=== PATIENT | female | born 1995 | race Caucasian/White ===

== ENCOUNTER 2021-08-22 01:32 | Inpatient (IN) | payer BC ==
--- NOTE | 2021-08-22 02:20 | EDPHYS ---
Physician Documentation [facility] Name: Diandra Vo Age: 26 yrs Sex: Female : 1995 Arrival Date: 08/22/2021 Time: 01:36 Bed 13 Private MD: ED Physician Ortega Crow HPI: 08/22 02:38 This 26 yrs old Female presents to ER via Ambulatory with complaints of Arm jr8 Pain, Abscess. 02:38 Onset: The symptoms/episode began/occurred gradually, 4 day(s) ago. Associated signs jr8 and symptoms: The patient has no apparent associated signs or symptoms. Severity of symptoms: At their worst the symptoms were moderate, in the emergency department the symptoms are unchanged. The patient has not experienced similar symptoms in the past. The patient has not recently seen a physician. Patient stated that she utilizes heroin on occasion. Had injected into the ventral aspect of her left forearm a few days ago. Since then has had abscess formation to the injection site along with increased erythema around the area. Patient stated that it is now becoming very painful is having a hard time moving her wrist and hand.. 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 - Social history:: Smoking status: Patient reports the use of cigarette tobacco products, smokes one pack cigarettes per day. Patient uses street drugs, heroin, IV drugs, heroin. ROS: 02:38 Constitutional: Negative for fever, chills, and weight loss, Eyes: Negative for injury, jr8 pain, redness, and discharge, ENT: Negative for injury, pain, and discharge, Neck: Negative for injury, pain, and swelling, Cardiovascular: Negative for chest pain, palpitations, and edema, Respiratory: Negative for shortness of breath, cough, wheezing, and pleuritic chest pain, Abdomen/GI: Negative for abdominal pain, nausea, vomiting, diarrhea, and constipation, Back: Negative for injury and pain, Skin: Negative for injury, rash, and discoloration, Neuro: Negative for headache, weakness, numbness, tingling, and seizure. 02:38 MS/extremity: Positive for erythema, pain, swelling, tenderness, warmth, of the Ventral aspect left forearm. Exam: 02:38 Constitutional: This is a well developed, well nourished patient who is awake, alert, jr8 and in no acute distress. Cardiovascular: Regular rate and rhythm with a normal S1 and S2. No gallops, murmurs, or rubs. Normal PMI, no JVD. No pulse deficits. Respiratory: Lungs have equal breath sounds bilaterally, clear to auscultation and percussion. No rales, rhonchi or wheezes noted. No increased work of breathing, no retractions or nasal flaring. Skin: Warm, dry with normal turgor. Normal color with no rashes, no lesions, and no evidence of cellulitis. Neuro: Awake and alert, GCS 15, oriented to person, place, time, and situation. Cranial nerves II-XII grossly intact. Motor strength 5/5 in all extremities. Sensory grossly intact. 02:38 Musculoskeletal/extremity: Extremities: grossly normal except: noted in the Left forearm: Patient has approximately a 3 cm abscess to the ventral left forearm. Surrounding cellulitis and induration noted. Patient has moderate amount of pain with passive and active range of motion to her wrist and fingers when flexing and extending with and without resistance. , Pulses: noted to be 2+ in the right radial artery and left radial artery, Perfusion: the patient is pink, warm, noted to have brisk capillary refill, Perfusion: the extremity is pink, warm, with brisk capillary refill, Sensation intact. Vital Signs: 01:51 BP 116 / 70; Pulse 106; Resp 18; Temp 98.0; Pulse Ox 100% on R/A; Weight 70.31 kg; df1 Height 5 ft. 5 in. (165.10 cm); Pain 6/10; 02:51 BP 110 / 60; Pulse 99; Resp 18; Pulse Ox 100% on R/A; Pain 7/10; ms4 04:19 BP 112 / 71; Pulse 95; Resp 18; Pulse Ox 98% on R/A; Pain 3/10; ms4 01:51 Body Mass Index 25.79 (70.31 kg, 165.10 cm) df1 MDM: 01:58 Patient medically screened. pkl 02:38 Data reviewed: vital signs, nurses notes, lab test result(s). Data interpreted: Pulse jr8 oximetry: on room air is 100 %. Interpretation: normal. Counseling: I had a detailed discussion with the patient and/or guardian regarding: the historical points, exam findings, and any diagnostic results supporting the discharge/admit diagnosis, lab results, the need for further work-up and treatment in the hospital. ED course: Dr. Cuellar consulted on the case and will see patient in the morning for surgery.. 08/22 02:15 Order name: CBC with Diff jr8 08/22 02:15 Order name: Basic Metabolic Panel 8 08/22 02:15 Order name: LFT's 8 08/22 02:15 Order name: Protime (+inr) 8 08/22 02:15 Order name: Ptt, Activated jr8 08/22 02:15 Order name: Blood Culture Adult (2) [facility] 08/22 02:15 Order name: Procalcitonin; Complete Time: 04:23 [facility] 08/22 02:16 Order name: CBC with Automated Diff; Complete Time: 02:50 EDMS 08/22 02:16 Order name: Basic Metabolic Panel; Complete Time: 04:23 EDMS 08/22 02:16 Order name: Liver (Hepatic) Function; Complete Time: 04:23 EDMS 08/22 02:16 Order name: Protime (+INR); Complete Time: 04:23 EDMS 08/22 02:16 Order name: PTT, Activated Partial Thromb; Complete Time: 04:23 EDMS 08/22 02:23 Order name: COVID-19 : Document "Date of Symptom Onset" if Symptomatic. bb 08/22 02:23 Order name: CORONAVIRUS EDMS 08/22 02:15 Order name: IV; Complete Time: 02:40 jr8 08/22 02:35 Order name: CONS Physician Consult EDAL 08/22 03:50 Order name: SARS-COV-2 RT PCR; Complete Time: 04:23 EDMS Administered Medications: 02:49 Drug: D5-1/2 NS 1000 ml Route: IV; Rate: 125 ml/hr; Site: right antecubital; ms4 02:49 Drug: Cefepime 1 grams Route: IVPB; Rate: 200 ml/hr; Infused Over: 30 mins; Site: right ms4 antecubital; 02:49 Drug: morphine 2 mg Route: IVP; Site: right antecubital; ms4 03:00 Drug: vancoMYCIN 1 grams Route: IVPB; Infused Over: 2 hrs; Site: right antecubital; ms4 03:00 Drug: Xopenex (levalbuterol) 1.25 mg Route: Inhalation; ms4 03:00 Drug: Ipratropium Aerosol 0.5 mg Route: Inhalation; ms4 Disposition: 04:23 Co-signature as Attending Physician, Ortega Crow MD. pkl Disposition Summary: 08/22/21 02:19 Hospitalization Ordered Hospitalization Status: Inpatient Admission jr8 Location: Telemetry/MedSurg (Inpatient) jr8 Condition: Stable jr8 Problem: new jr8 Symptoms: are unchanged jr8 Bed/Room Type: Standard jr8 Provider: Dorina Saini(08/22/21 02:42) jr8 Room Assignment: [facility](08/22/21 03:55) Diagnosis - Cellulitis of left upper limb jr8 - Cutaneous abscess of left upper limb jr8 - Tenosynovitis jr8 Forms: - Medication Reconciliation Form jr8 - SBAR form jr8 Signatures: Dispatcher [employer] EDMS Jamia Samuel RN RN mw Lam, Pin, MD MD pkl Kristopher Hickman PA PA jr8 Bina Arzola RN RN ms4 Kiarra Pinedo df1 Corrections: (The following items were deleted from the chart) 02:42 02:19 Karan Weeks jr8 jr8 03:55 02:19 jrTuan mw
--- NOTE | 2021-08-22 02:20 | ER ---
Nurse's Notes [facility] Name: Diandra Vo Age: 26 yrs Sex: Female : 1995 Arrival Date: 08/22/2021 Time: 01:36 Bed 13 Private MD: Diagnosis: Cellulitis of left upper limb;Cutaneous abscess of left upper limb;Tenosynovitis Presentation: 08/22 01:51 Chief complaint: Patient states: Abscess to left FA x 3 days. Coronavirus screen: df1 Vaccine status: Patient reports receiving the 1st dose of the Covid vaccine. The client reports previous COVID testing was negative. Date of collection: October 2020. Ebola Screen: Patient negative for fever greater than or equal to 101.5 degrees Fahrenheit, and additional compatible Ebola Virus Disease symptoms Patient denies exposure to infectious person. Patient denies travel to an Ebola-affected area in the 21 days before illness onset. Initial Sepsis Screen: Does the patient meet any 2 criteria? No. Patient's initial sepsis screen is negative. Does the patient have a suspected source of infection? Yes: Other: abscess to left FA. Risk Assessment: Do you want to hurt yourself or someone else? Patient reports no desire to harm self or others. Onset of symptoms was August 18, 2021. 01:51 Method Of Arrival: Ambulatory df1 01:51 Acuity: MARLY 3 df1 01:56 Note Pt states abscess to left FA x 3 days after using IV Herion. Denies N/V/D/fever. df1 Triage Assessment: 02:00 General: Appears comfortable, unkempt, Behavior is calm, cooperative. Pain: Complains df1 of pain in left arm. Neuro: No deficits noted. Cardiovascular: No deficits noted. Respiratory: No deficits noted. GI: No deficits noted. : No deficits noted. Derm: abscess to left FA. Musculoskeletal: No deficits noted. 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 - Social history:: Smoking status: Patient reports the use of cigarette tobacco products, smokes one pack cigarettes per day. Patient uses street drugs, heroin, IV drugs, heroin. Screenin:55 Abuse screen: Denies threats or abuse. Nutritional screening: No deficits noted. df1 Tuberculosis screening: No symptoms or risk factors identified. Fall Risk None identified. Assessment: 02:49 General: Appears in no apparent distress. Behavior is calm, cooperative, appropriate ms4 for age. Pain: Complains of pain in left radial artery and right radial artery and left arm. Neuro: No deficits noted. Cardiovascular: No deficits noted. Respiratory: Breath sounds with wheezes bilaterally. Musculoskeletal: Swelling present in left arm Tenderness present in left arm Reports pain in left arm since 3 days. Injury Description: abscess to left forearm. 02:52 Reassessment: patient reports she last used heroin 3 hours ago. patient reports she ms4 starts to have withdrawal symptoms around 12 hours after using. JESSIE Hernandez notified. 04:05 Reassessment: report given to jannteh bliss. patient to be transported upstairs. ms4 04:20 Reassessment: Patient appears in no apparent distress at this time. No changes from ms4 previously documented assessment. Patient and/or family updated on plan of care and expected duration. Pain level reassessed. Patient is alert, oriented x 3, equal unlabored respirations, skin warm/dry/pink. Vital Signs: 01:51 BP 116 / 70; Pulse 106; Resp 18; Temp 98.0; Pulse Ox 100% on R/A; Weight 70.31 kg; df1 Height 5 ft. 5 in. (165.10 cm); Pain 6/10; 02:51 BP 110 / 60; Pulse 99; Resp 18; Pulse Ox 100% on R/A; Pain 7/10; ms4 04:19 BP 112 / 71; Pulse 95; Resp 18; Pulse Ox 98% on R/A; Pain 3/10; ms4 01:51 Body Mass Index 25.79 (70.31 kg, 165.10 cm) df1 ED Course: 01:36 Patient arrived in ED. bp1 01:53 Triage completed. df1 01:58 Ortega Crow MD is Attending Physician. pkl 02:01 Arm band placed on right wrist. df1 02:02 Patient has correct armband on for positive identification. Placed in gown. Bed in low df1 position. Call light in reach. Side rails up X 1. Adult w/ patient. 02:03 [facility] kc4 02:17 Karan Weeks is Hospitalizing Provider. jr8 02:42 Dorina Saini MD is Hospitalizing Provider. jr8 02:48 Protime (+inr) Sent. ms4 02:48 Ptt, Activated Sent. ms4 02:48 LFT's Sent. ms4 02:48 Basic Metabolic Panel Sent. ms4 02:48 CBC with Diff Sent. ms4 02:49 COVID-19 : Document "Date of Symptom Onset" if Symptomatic. Sent. ms4 02:51 Inserted saline lock: 20 gauge in right antecubital area, using aseptic technique. ms4 Blood collected. 04:20 No provider procedures requiring assistance completed. ms4 Administered Medications: 02:49 Drug: D5-1/2 NS 1000 ml Route: IV; Rate: 125 ml/hr; Site: right antecubital; ms4 02:49 Drug: Cefepime 1 grams Route: IVPB; Rate: 200 ml/hr; Infused Over: 30 mins; Site: right ms4 antecubital; 02:49 Drug: morphine 2 mg Route: IVP; Site: right antecubital; ms4 03:00 Drug: vancoMYCIN 1 grams Route: IVPB; Infused Over: 2 hrs; Site: right antecubital; ms4 03:00 Drug: Xopenex (levalbuterol) 1.25 mg Route: Inhalation; ms4 03:00 Drug: Ipratropium Aerosol 0.5 mg Route: Inhalation; ms4 Outcome: 02:19 Decision to Hospitalize by Provider. jr8 04:21 Patient left the ED. ms4 Signatures: Ortega Crow MD MD pkl Kristopher Hickman PA PA jr8 Melida Hidalgo Mikaela RN RN ms4 Collette Baig kc4 Kiarra Pinedo df1
--- NOTE | 2021-08-22 02:44 | P.HP ---
Certification for Inpatient Patient admitted to: Inpatient With expected LOS: >2 Midnights Patient will require the following post-hospital care: None Practitioner: I am a practitioner with admitting privileges, knowledge of patient current condition, hospital course, and medical plan of care. Services: Services provided to patient in accordance with Admission requirements found in Title 42 Section 412.3 of the Code of Federal Regulations <PalomoDavid Michelle - Last Filed: 08/22/21 03:18> Patient History Date of Service: 08/22/21 Reason for admission: cellulitis of left forearm History of Present Illness: Ms. Vo is a 26 yo F with substance use disorder and asthma who presents with pain, warmth and swelling of the left forearm for the past three days. Denies fever, nausea and vomiting. She last used heroine 3 hours ago. After 12 hours without use, her withdrawal symptoms usually begin. - Past Medical/Surgical History Diabetic: No -: asthma -: substance use disorder - heroine -: tonsillectomy - Family History Family History: Reviewed- Non-Contributory (adopted) - Social History Smoking Status: Current every day smoker Alcohol use: No CD- Drugs: Yes Caffeine use: No Place of Residence: Home <David Culver - Last Filed: 08/22/21 03:18> Date of Service: 08/22/21 <Dorina Saini - Last Filed: 08/25/21 01:23> Review of Systems 10-point ROS is otherwise unremarkable Musculoskeletal: Arm Pain, As per HPI Integumentary: As per HPI <David Culver - Last Filed: 08/22/21 03:18> Physical Examination - Physical Exam General: Alert, In no apparent distress HEENT: Atraumatic, PERRLA, Mucous membr. moist/pink, EOMI, Sclerae nonicteric Neck: Supple, 2+ carotid pulse no bruit, No LAD, Without JVD or thyroid abnormality Respiratory: Normal air movement, Expiratory wheezes Cardiovascular: Regular rate/rhythm, Normal S1 S2 Gastrointestinal: Normal bowel sounds, No tenderness Musculoskeletal: No tenderness Integumentary: Tenderness/swelling, Erythema, Warmth Neurological: Normal speech, Normal strength at 5/5 x4 extr, Normal tone, Normal affect Lymphatics: No axilla or inguinal lymphadenopathy <David Culver - Last Filed: 08/22/21 03:18> Assessment and Plan - Problems (Diagnosis) (1) Heroin use Current Visit: Yes Status: Chronic (2) Cellulitis Current Visit: Yes Status: Acute Qualifiers: Site of cellulitis: extremity Site of cellulitis of extremity: upper extremity Laterality: left Qualified Code(s): L03.114 - Cellulitis of left upper limb (3) Asthma Current Visit: Yes Status: Chronic Qualifiers: Asthma severity: mild Asthma persistence: intermittent Asthma complication type: uncomplicated Qualified Code(s): J45.20 - Mild intermittent asthma, uncomplicated - Plan plastic surgery consulted NPO at midnight continue IVF hydration and IV antibiotics pain medication as needed breathing treatments PRN monitor for s/s of withdrawal DVT ppx Discharge Plan: Home Plan to discharge in: 72 Hours - Advance Directives Does patient have a Living Will: No Does patient have a Durable POA for Healthcare: No - Code Status/Comfort Care Code Status Assessed: Yes (full code ) Critical Care: No Time Spent Managing Pts Care (In Minutes): 70 <David Culver - Last Filed: 08/22/21 03:18> - Problems (Diagnosis) (1) Cellulitis Current Visit: Yes Status: Acute Qualifiers: Site of cellulitis: extremity Site of cellulitis of extremity: upper extremity Laterality: left Qualified Code(s): L03.114 - Cellulitis of left upper limb (2) Heroin use Current Visit: Yes Status: Chronic <Dorina Saini - Last Filed: 08/25/21 01:23> Date of Service: 08/22/21 Subjective agree with the HPI as above. Status post surgery Review of Systems 10-point ROS is otherwise unremarkable Physical Examination - Vital Signs Reviewed - Physical Exam General: Alert, In no apparent distress, Oriented x3 Respiratory: Clear to auscultation bilaterally, Diminished Cardiovascular: Regular rate/rhythm, Normal S1 S2, No murmurs Gastrointestinal: Normal bowel sounds, Soft and benign, Non-distended, No tenderness Musculoskeletal: No clubbing, No tenderness Integumentary: Tenderness/swelling, Erythema Neurological: Sensation intact, Cranial nerves 3-12 intact Assessment & Plan - Problems (Diagnosis) (1) Cellulitis Current Visit: Yes Status: Acute Qualifiers: Site of cellulitis: extremity Site of cellulitis of extremity: upper extremity Laterality: left Qualified Code(s): L03.114 - Cellulitis of left upper limb (2) Heroin use Current Visit: Yes Status: Chronic - Plan Continue plan of care as mentioned below: 1. Continue with IV antibiotic 2. Continue with local wound care 3. Appreciate hand surgeon; closure on Wednesday 4. Gentle IV hydration 5. Monitor CBC 6. Strict blood sugar monitoring 7. Pain control 8. GI and DVT prophylaxis <Dorina Saini - Last Filed: 08/25/21 01:23>
[2021-08-22 02:46] LABS: Absolute Lymphocytes (CBC) 1.6 K/uL (0.7-4.9); Basophils % 0.4 % (0-1.3); Hematocrit 38.6 % (36.0-45.0); MPV 7.9 fL (7.6-11.3); RBC Red Blood Cell Count 4.61 M/uL (3.86-4.86)
[2021-08-22 02:52] LABS: Protime INR 1.2
[2021-08-22] MEDS ORDERED: CEFEPIME 1 GM/VIAL ONE (02:56)
[2021-08-22] MEDS ORDERED: MORPHINE 4 MG/ML SYR ONE (02:57)
[2021-08-22] MEDS ORDERED: D5 0.45 NS 1,000 ML IV ONE (02:57)
[2021-08-22] MEDS ORDERED: NA CHLORIDE 0.9% 100 ML ONE (02:57)
[2021-08-22 03:06] LABS: ALT/SGPT 22 U/L (12-78); AST/SGOT 15 U/L (15-37); Albumin 3.5 g/dL (3.4-5.0); Alkaline Phosphatase 80 U/L (45-117); BUN Blood Urea Nitrogen 6 mg/dL (7-18); Bicarbonate 28 mmol/L (21-32); Bilirubin Direct < 0.1 mg/dL (0-0.2); Bilirubin Total 0.4 mg/dL (0.2-1.0); Glucose Level 108 mg/dL (74-106); Potassium 3.1 mmol/L (3.5-5.1); Protein, Total 7.3 g/dL (6.4-8.2); Sodium Level 138 mmol/L (136-145)
[2021-08-22] MEDS ORDERED: NA CHLORIDE 0.9% 250 ML ONE (03:22)
[2021-08-22] MEDS ORDERED: IPRATROPIUM BROM 0.5MG/2.5ML ONE (03:22)
[2021-08-22] MEDS ORDERED: LEVALBUTEROL 1.25 MG/3 ML NEB ONE (03:22)
[2021-08-22] MEDS ORDERED: VANCOMYCIN 1 GM/VIAL ONE (03:22)
[2021-08-22] MEDS ORDERED: ACETAMINOPHEN 500 MG TAB PO PRN (03:56)
[2021-08-22] MEDS ORDERED: IPRATROPIUM BROM 0.5MG/2.5ML NEB PRN (03:56)
[2021-08-22] MEDS ORDERED: POTASSIUM 25 MEQ EFFERV TAB PO ONE (03:56)
[2021-08-22] MEDS ORDERED: ALBUTEROL 2.5 MG/3 ML NEB SOL NEB PRN (03:56)
[2021-08-22] MEDS ORDERED: ONDANSETRON 4 MG/2 ML VIAL IV PRN (03:56)
[2021-08-22] MEDS ORDERED: VANCOMYCIN 1.25 GM in NA CHLORIDE 0.9% 250 ML IVPB SCH (05:00)
[2021-08-22] MEDS: D5 0.45 NS 1,000 ML IV SCH ×3 (05:02→22:28)
[2021-08-22 05:30] VITALS: BMI 3602.1
[2021-08-22] MEDS: MORPHINE 4 MG/ML SYR IV PRN ×3 (05:33→22:28)
[2021-08-22 09:27] LABS: Urine Appearance CLOUDY (Clear); Urine Bilirubin NEGATIVE (Negative); Urine Blood NEGATIVE (Negative); Urine Color YELLOW (Yellow); Urine Glucose NEGATIVE (Negative); Urine Protein NEGATIVE (Negative)
[2021-08-22 09:32] LABS: Urine Microscopic Reflex ORDER UMIC
--- NOTE | 2021-08-22 09:42 | RAD REPORT ---
EXAM DESCRIPTION: RAD - Forearm Left - 08/22/2021 9:19 am CLINICAL HISTORY: cellulitis COMPARISON: No comparisons FINDINGS: Significant soft tissue swelling is seen along the palmar aspect of the forearm. No underl roopa bony abnormality. No radiopaque foreign body or soft tissue gas.
[2021-08-22 10:19] LABS: Urine Bacteria LOADED /HPF (<20); Urine Mucus 2+ /HPF (NONE SEEN); Urine RBC <5 /HPF (NONE SEEN); Urine Urothelial Cells <5 /HPF (NONE SEEN)
[2021-08-22] MEDS ORDERED: Ringers Lactate 1,000 ML IV ONE (10:56)
[2021-08-22] MEDS ORDERED: CELECOXIB 100 MG CAPSULE ONE (11:58)
[2021-08-22] MEDS ORDERED: ACETAMINOPHEN 500 MG TAB ONE (11:58)
[2021-08-22] MEDS ORDERED: propofoL 200 MG/20 ML VIAL IV ONE ×2 (12:18→13:02)
[2021-08-22] MEDS ORDERED: MIDAZOLAM HCL 2 MG/2 ML INJ ONE (12:18)
[2021-08-22] MEDS ORDERED: FENTANYL CITR 100 MCG/2 ML ONE (12:18)
[2021-08-22] MEDS ORDERED: LIDOCAINE 1% MPF 5 ML VIAL ONE (12:18)
[2021-08-22] MEDS ORDERED: dexAMETHasone 10 MG/ML VIAL ONE (12:54)
[2021-08-22] MEDS ORDERED: ONDANSETRON 4 MG/2 ML VIAL ONE (13:01)
[2021-08-22] MEDS ORDERED: KETOROLAC 30 MG/ML INJ ONE (13:01)
[2021-08-22] MEDS: CEFEPIME 1 GM/100 ML BAG IV SCH (14:30)
[2021-08-22] MEDS ORDERED: Pharmacy Consult 1 EA XX PRN (15:00)
[2021-08-22] MEDS ORDERED: CEFEPIME 1 GM/VIAL IV SCH (15:00)
[2021-08-22] MEDS: VANCOMYCIN 1.25 GM in NA CHLORIDE 0.9% 250 ML IVPB SCH (15:08)
--- NOTE | 2021-08-22 23:41 | OP ---
Surgeon: Matthew Cuellar MD Preop Diagnosis: Abscess of the left forearm, volar. Postop Diagnosis: Abscess of the left forearm, volar. Procedure: Incision and drainage of abscess, debridement of subcutaneous tissue. Anesthesia: General. Description Of Procedure: After satisfactory general anesthesia, the left arm was prepped with Betad ine scrub, Betadine paint, dry sterile drapes placed, the arm elevated, tourniquet inflated to 250 mm Hg. The forearm was placed on a roll lock table. A transverse incision was made over the abscess an d extended proximally and distally in the volar surface about 5 cm in diameter. Pus was obtained. C ultures were taken. The underlying superficial fascia was intact. The wound was jet lavage irrigate d and scrubbed with scrub brush and tenotomy scissors was used to debride necrotic tissue. Tournique t released. Electrocautery was used for hemostasis. Wound packed with half-inch iodoform gauze with a Kerlix. The patient tolerated the procedure well return comfortably. BRYANT/IZABELLA Voice ID: [id number] Report ID: [id number]
[2021-08-23] MEDS: CEFEPIME 1 GM/100 ML BAG IV SCH ×2 (00:58→15:31)
[2021-08-23] MEDS: VANCOMYCIN 1.25 GM in NA CHLORIDE 0.9% 250 ML IVPB SCH ×3 (02:15→22:20)
[2021-08-23] MEDS: MORPHINE 4 MG/ML SYR IV PRN ×2 (05:12→12:30)
[2021-08-23] MEDS: D5 0.45 NS 1,000 ML IV SCH ×2 (08:28→12:33)
[2021-08-23 14:19] LABS: Absolute Lymphocytes (CBC) 2.4 K/uL (0.7-4.9); Basophils % 0.6 % (0-1.3); Hematocrit 33.4 % (36.0-45.0); Lymphocytes % 19.9 % (15.3-44.8); MPV 7.6 fL (7.6-11.3); RBC Red Blood Cell Count 3.97 M/uL (3.86-4.86)
[2021-08-23 15:02] LABS: ALT/SGPT 14 U/L (12-78); AST/SGOT 8 U/L (15-37); Albumin 2.7 g/dL (3.4-5.0); Alkaline Phosphatase 70 U/L (45-117); BUN Blood Urea Nitrogen 7 mg/dL (7-18); Bicarbonate 26 mmol/L (21-32); Bilirubin Total 0.1 mg/dL (0.2-1.0); Glucose Level 122 mg/dL (74-106); Phosphorus 3.4 mg/dL (2.5-4.9); Potassium 3.9 mmol/L (3.5-5.1); Protein, Total 6.5 g/dL (6.4-8.2); Sodium Level 144 mmol/L (136-145)
[2021-08-23] MEDS: CODEINE 30MG/APAP 300MG TAB PO PRN ×2 (16:49→22:20)
[2021-08-23] MEDS ORDERED: VANCOMYCIN 1.25 GM in NA CHLORIDE 0.9% 250 ML IVPB SCH (22:00)
[2021-08-24] MEDS: CEFEPIME 1 GM/100 ML BAG IV SCH ×2 (00:59→16:14)
[2021-08-24] MEDS: D5 0.45 NS 1,000 ML IV SCH ×2 (04:00→16:09)
[2021-08-24] MEDS: MORPHINE 4 MG/ML SYR IV PRN ×2 (05:00→18:19)
[2021-08-24] MEDS: VANCOMYCIN 1.25 GM in NA CHLORIDE 0.9% 250 ML IVPB SCH ×3 (06:19→22:37)
[2021-08-24] MEDS: CODEINE 30MG/APAP 300MG TAB PO PRN ×3 (07:30→21:34)
[2021-08-24] MEDS ORDERED: VANCOMYCIN 500 MG/VIAL ONE (22:51)
[2021-08-25] MEDS: CODEINE 30MG/APAP 300MG TAB PO PRN ×4 (00:53→20:25)
[2021-08-25] MEDS: D5 0.45 NS 1,000 ML IV SCH ×2 (01:02→12:00)
--- NOTE | 2021-08-25 01:22 | P.PN ---
Subjective Date of Service: 08/23/21 Patient stable with no new complaints. Doing well post operative day #1. Review of Systems 10-point ROS is otherwise unremarkable Physical Examination - Vital Signs Temperature: 97.8 F Blood Pressure: 114/59 Pulse: 74 Respirations: 18 Pulse Ox (%): 99 - Physical Exam General: Alert, In no apparent distress, Oriented x3 Respiratory: Clear to auscultation bilaterally, Diminished Cardiovascular: Regular rate/rhythm, Normal S1 S2, No murmurs Gastrointestinal: Normal bowel sounds, Soft and benign, Non-distended, No tenderness Musculoskeletal: No clubbing, No tenderness Integumentary: Tenderness/swelling, Erythema Neurological: Sensation intact, Cranial nerves 3-12 intact - Studies Medications List Reviewed: Yes Assessment & Plan - Problems (Diagnosis) (1) Cellulitis Current Visit: Yes Status: Acute Qualifiers: Site of cellulitis: extremity Site of cellulitis of extremity: upper extremity Laterality: left Qualified Code(s): L03.114 - Cellulitis of left upper limb (2) Heroin use Current Visit: Yes Status: Chronic - Plan 1. Continue with IV antibiotic 2. Continue with local wound care 3. Appreciate hand surgeon; closure on Wednesday 4. Gentle IV hydration 5. Monitor CBC 6. Strict blood sugar monitoring 7. Pain control 8. GI and DVT prophylaxis Discharge Plan: Home Plan to discharge in: Greater than 2 days - Advance Directives Does patient have a Living Will: No Does patient have a Durable POA for Healthcare: No - Code Status/Comfort Care Code Status Assessed: Yes Code Status: Full Code Critical Care: No Time Spent Managing PTS Care (In Minutes): 35
--- NOTE | 2021-08-25 01:24 | P.PN ---
Date of Service: 08/24/21 Subjective Patient doing well with no new complaints. Review of Systems 10-point ROS is otherwise unremarkable Physical Examination - Vital Signs Reviewed - Physical Exam General: Alert, In no apparent distress, Oriented x3 Respiratory: Clear to auscultation bilaterally, Diminished Cardiovascular: Regular rate/rhythm, Normal S1 S2, No murmurs Gastrointestinal: Normal bowel sounds, Soft and benign, Non-distended, No tenderness Musculoskeletal: No clubbing, No tenderness Integumentary: Dressing is clear, dry, and intact Neurological: Sensation intact, Cranial nerves 3-12 intact Assessment & Plan - Problems (Diagnosis) (1) Cellulitis Current Visit: Yes Status: Acute Qualifiers: Site of cellulitis: extremity Site of cellulitis of extremity: upper extremity Laterality: left Qualified Code(s): L03.114 - Cellulitis of left upper limb (2) Heroin use Current Visit: Yes Status: Chronic - Plan Continue plan of care as mentioned below: 1. Continue with IV antibiotic 2. Continue with local wound care 3. Appreciate hand surgeon; closure on Wednesday 4. Gentle IV hydration 5. Monitor CBC 6. Strict blood sugar monitoring 7. Pain control 8. GI and DVT prophylaxis
[2021-08-25] MEDS: CEFEPIME 1 GM/100 ML BAG IV SCH ×2 (02:00→15:45)
[2021-08-25] MEDS: MORPHINE 4 MG/ML SYR IV PRN ×3 (03:15→11:59)
[2021-08-25 06:36] LABS: Absolute Lymphocytes (CBC) 1.9 K/uL (0.7-4.9); Basophils % 0.9 % (0-1.3); Hematocrit 36.2 % (36.0-45.0); Lymphocytes % 25.9 % (15.3-44.8); MPV 7.5 fL (7.6-11.3); RBC Red Blood Cell Count 4.36 M/uL (3.86-4.86)
[2021-08-25 06:46] LABS: BUN Blood Urea Nitrogen 6 mg/dL (7-18); Bicarbonate 28 mmol/L (21-32); Glucose Level 115 mg/dL (74-106); Potassium 4.1 mmol/L (3.5-5.1); Sodium Level 140 mmol/L (136-145)
[2021-08-25] MEDS ORDERED: ALBUTEROL 2.5 MG/3 ML NEB SOL NEB PRN (08:00)
[2021-08-25] MEDS: VANCOMYCIN 1.25 GM in NA CHLORIDE 0.9% 250 ML IVPB SCH ×3 (08:59→22:50)
--- NOTE | 2021-08-25 14:35 | DS ---
The patient's wounds open ahd improving plan or tomorrow, n.p.o. at midnight aftre will discharge. BRYANT/IZABELLA Voice ID: [id number] Report ID: [id number] MTDD
--- NOTE | 2021-08-25 16:43 | P.PN ---
Subjective Date of Service: 08/25/21 Chief Complaint: cellulitis of left forearm Physical Examination - Vital Signs Temperature: 97.7 F Blood Pressure: 99/57 Pulse: 68 Respirations: 18 Pulse Ox (%): 97 - Studies Medications List Reviewed: Yes Assessment & Plan Discharge Plan: Home Plan to discharge in: 24 Hours Physician Review Additional Text: Xray: COMPARISON: No comparisons FINDINGS: Significant soft tissue swelling is seen along the palmar aspect of the forearm. No underlying bony abnormality. No radiopaque foreign body or soft tissue gas. Surgery: Date: 08/22/2021 Surgeon: Matthew Cuellar MD Preop Diagnosis: Abscess of the left forearm, volar. Postop Diagnosis: Abscess of the left forearm, volar. Procedure: Incision and drainage of abscess, debridement of subcutaneous tissue. Anesthesia: General. Physical exam: General: Alert, In no apparent distress, Oriented x3 Respiratory: Clear to auscultation bilaterally, Diminished Cardiovascular: Regular rate/rhythm, Normal S1 S2, No murmurs Gastrointestinal: Normal bowel sounds, Soft and benign, Non-distended, No tenderness Musculoskeletal: No clubbing, No tenderness Integumentary: Dressing to the left arm appears unremarkable Neurological: Sensation intact, Cranial nerves 3-12 intact Impression: Left forearm abscess status post incision and drainage with debridement Heroin use Plan: Left forearm abscess status post incision and drainage with debridement: Continue with IV antibiotics. Case discussed with Dr. Cuellar. Surgery planned for tomorrow for irrigation and debridement and closure. Can likely be discharged tomorrow. Heroin use: Cessation education needs to be addressed in detail. CODE STATUS: Full code Advance care planning: Home at discharge DVT prophylaxis: Lovenox Time Spent Managing Pts Care (In Minutes): 55
[2021-08-25] MEDS ORDERED: TRAMADOL HCL 50 MG TAB PO PRN (16:45)
[2021-08-25] MEDS ORDERED: ENOXAPARIN 40 MG/0.4 ML SQ SCH (17:00)
[2021-08-26] MEDS: MORPHINE 4 MG/ML SYR IV PRN ×2 (00:16→04:34)
[2021-08-26] MEDS: CEFEPIME 1 GM/100 ML BAG IV SCH (01:42)
--- NOTE | 2021-08-26 06:17 | P.DS ---
Admission Date: 08/22/21 Discharge Date: 08/26/21 Primary Care Provider: none Disposition: ROUTINE DISCHARGE Discharge Condition: GOOD Reason for Admission: cellulitis of left forearm Consultations: Plastic Surgery-Dr. Cuellar Procedures: COVID: negative Xray: COMPARISON: No comparisons FINDINGS: Significant soft tissue swelling is seen along the palmar aspect of the forearm. No underlying bony abnormality. No radiopaque foreign body or soft tissue gas. Surgery: Date: 08/22/2021 Surgeon: Matthew Cuellar MD Preop Diagnosis: Abscess of the left forearm, volar. Postop Diagnosis: Abscess of the left forearm, volar. Procedure: Incision and drainage of abscess, debridement of subcutaneous tissue. Anesthesia: General. Surgery #2: Date: 08/26/2021 Closure of wound. Medical Problem List: Left forearm abscess status post incision and drainage with debridement with subsequent closure Heroin use UTI, urine culture positive for E. coli and Enterococcus Brief History of Present Illness: 26-year-old female with history of substance abuse presented with pain and warmth to the left forearm. Patient admitted to heroin use prior to admission. Patient admitted for treatment. Hospital Course: Patient presented with left forearm abscess. This was likely from heroin use. Patient was admitted for treatment. Patient received IV tabetic therapy. Patient was seen by plastic surgery. Plastic surgery recommended intervention. Irrigation and debridement was performed. Patient continued with IV antibiotic therapy until irrigation and debridement was again done with closure. Patient has done well. Cultures negative. At discharge she was found to have a UTI. Urine culture was positive for E. coli and Enterococcus. At discharge patient w ill continue with Levaquin 750 mg 1 pill daily for 5 days. Patient will continue with current wound care treatment as per plastic surgery. Patient will follow up with plastic surgery early next week. Recommend heroin cessation. Vital Signs/Physical Exam: Temp Pulse Resp BP Pulse Ox 97.6 F 107 H 18 114/78 98 08/26/21 04:00 08/26/21 04:00 08/26/21 04:00 08/26/21 04:00 08/26/21 04:00 General: Alert, In no apparent distress, Oriented x3, Cooperative HEENT: Atraumatic Neck: Supple Respiratory: Clear to auscultation bilaterally, Normal air movement Cardiovascular: Normal pulses, Regular rate/rhythm Gastrointestinal: Normal bowel sounds Musculoskeletal: No erythema, No tenderness, No warmth Integumentary: Other (Wound to the left forearm) Neurological: Normal speech, Normal strength at 5/5 x4 extr, Normal tone Laboratory Data at Discharge: WBC 7.30 K/uL (4.3-10.9) D 08/25/21 06:16 Hgb 12.3 g/dL (12.0-15.0) 08/25/21 06:16 Hct 36.2 % (36.0-45.0) 08/25/21 06:16 Plt Count 407 K/uL (152-406) H 08/25/21 06:16 PT 13.8 SECONDS (9.5-12.5) H 08/22/21 02:30 INR 1.20 08/22/21 02:30 APTT 30.8 SECONDS (24.3-36.9) 08/22/21 02:30 Sodium 140 mmol/L (136-145) 08/25/21 06:16 Potassium 4.1 mmol/L (3.5-5.1) 08/25/21 06:16 BUN 6 mg/dL (7-18) L 08/25/21 06:16 Creatinine 0.47 mg/dL (0.55-1.3) L 08/25/21 06:16 Glucose 115 mg/dL (74-106) H 08/25/21 06:16 Phosphorus 3.4 mg/dL (2.5-4.9) 08/23/21 14:04 Magnesium 2.0 mg/dL (1.8-2.4) 08/23/21 14:04 Total Bilirubin 0.1 mg/dL (0.2-1.0) L 08/23/21 14:04 AST 8 U/L (15-37) L 08/23/21 14:04 ALT 14 U/L (12-78) 08/23/21 14:04 Alkaline Phosphatase 70 U/L (45-117) 08/23/21 14:04 Home Medications: levoFLOXacin [Levaquin*] 750 mg PO DAILY #5 tab 08/26/21 New Medications: levoFLOXacin [Levaquin*] 750 mg PO DAILY #5 tab Physician Discharge Instructions: Patient presented with left forearm abscess. This was likely from heroin use. Patient was admitted for treatment. Patient received IV tabetic therapy. Patient was seen by plastic surgery. Plastic surgery recommended intervention. Irrigation and debridement was performed. Patient continued with IV antibiotic therapy until irrigation and debridement was again done with closure. Patient has done well. Cultures negative. At discharge she was found to have a UTI. Urine culture was positive for E. coli and Enterococcus. At discharge patient will continue with Levaquin 750 mg 1 pill daily for 5 days. Patient will continue with current wound care treatment as per plastic surgery. Patient will follow up with plastic surgery early next week. Recommend heroin cessation. Diet: AHA Activity: Ad carlito Followup: NONE,NONE [Primary Care Provider] - Time spent managing pt's care (in minutes): 55
[2021-08-26] MEDS: CODEINE 30MG/APAP 300MG TAB PO PRN ×2 (08:15→12:04)
[2021-08-26] MEDS: VANCOMYCIN 1.25 GM in NA CHLORIDE 0.9% 250 ML IVPB SCH (09:05)
[2021-08-26] MEDS ORDERED: Ringers Lactate 1,000 ML IV ONE (09:37)
[2021-08-26] MEDS ORDERED: propofoL 200 MG/20 ML VIAL IV ONE (09:45)
[2021-08-26] MEDS ORDERED: MIDAZOLAM HCL 2 MG/2 ML INJ ONE (09:45)
[2021-08-26] MEDS ORDERED: FENTANYL CITR 100 MCG/2 ML ONE (09:45)
[2021-08-26] MEDS ORDERED: dexAMETHasone 10 MG/ML VIAL ONE (09:45)
[2021-08-26] MEDS ORDERED: KETOROLAC 30 MG/ML INJ ONE (09:45)
[2021-08-26] MEDS ORDERED: LIDOCAINE 2% MPF 5 ML VIAL ONE (09:46)
[2021-08-26] MEDS ORDERED: ONDANSETRON 4 MG/2 ML VIAL ONE (09:47)
[2021-08-26] MEDS ORDERED: HYDROMORPHONE HCL 1 MG/ML INJ ONE (10:10)
[2021-08-26] MEDS: HYDROMORPHONE HCL 1 MG/ML INJ ONE ×2 (10:49→10:56)
[2021-08-26] MEDS ORDERED: EPHEDRINE SULF 50 MG/ML VIAL ONE (10:55)
[2021-08-26 11:09] VITALS: O2SAT 99
[2021-08-26] MEDS ORDERED: levoFLOXacin 750 MG TAB PO SCH (12:00)
[2021-08-26 12:18] VITALS: BP 110/65; TEMP 98
--- NOTE | 2021-08-26 15:05 | OP ---
Surgeon: Matthew Cuellar MD Preoperative Diagnosis: Open wound of the left forearm. Postoperative Diagnosis: Open wound of the left forearm. Procedure Performed: Debridement of skin and subcutaneous tissue, simple closure of 12 cm wound. Anesthesia: General. Procedure In Detail: After satisfactory induction of general anesthesia, the left arm was prepped wi th Betadine scrub and Betadine paint. Dry sterile drapes were applied in the usual manner. Hand was placed on roll lock table. Curette, forceps and scissors were used to debride skin and subcutaneous tissue as needed. Wound was jet lavage and irrigated with 3 L of dilute Betadine solution. Electroc autery was used for hemostasis. Wound was closed with 4-0 Prolene vertical half buried mattress of s imple sutures. Dressed with Xeroform and Kerlix. The patient tolerated procedure well and returned to Recovery. RAMA Voice ID: [id number] Report ID: [id number]
--- OUTSIDE RECORDS SUMMARY | 2021-09-25 07:25 | XMS REPORT | Continuity of Care Document ---
:1995 Author Organization [facility] t Address [address] [place] [address] Care Team Providers Name Role Phone Felecia Attending Clinician Unavailable Joel Attending Clinician Unavailable IONA Dillard Admitting Clinician Unavailable KNOW Admitting Clinician Unavailable Payers Payer Name Policy Type Policy Number Effective Date Expiration Date S ource Problems Condition Condition Condition Status Onset Resolution Last Treating Co mments Source Name Details Category Date Date Treatment Clinician Date Obesity Obesity Problem Active [facility] 1[facility] Family 00:00: Practic 00 e Recurrent Recurrent Problem Active Albina iva urinary Urinary 1-30 Family tract Tract 00:00: Practic infection Infection 00 e Asthma Asthma Problem Active [facility] 2-10 Family 00:00: Practic 00 e Bipolar Bipolar Problem Active 2013-11 Village disorder Disorder 0-06 Family 00:00: Practic 00 e Allergies, Adverse Reactions, Alerts Allergy Allergy Status Severity Reaction(s) Onset Inactive Treating Comm ents Source Name Type Date Date Clinician No Known DA Active U [facility] 00:[facility]: [address] No Known DA Active U [facility] 00:[facility]: [address] No Known DA Active U 0 [facility] 00:[facility]: H[facility] [address] [place] [address] No Known DA Active U 2019-0 [facility]: [address] Social History Smoking Status Start Date Stop Date Source Heavy Tobacco Smoker [facility]ie Practice Medications Ordered Filled Start Stop Current Ordering Indication Dosage Frequency Signature Comments Components Source Medication Medication Date Date Medication? Clinician (SIG) Name Name hydroxyzine hydroxyzine No 1 QID hydroxyzin [facility] HCl 50 mg HCl 50 mg e HCl 50 F amily tablet Take tablet Take mg tablet Practic 1 tablet 4 1 tablet 4 Take 1 e times a day times a day tablet 4 by oral by oral times a route as route as day by needed. needed. oral route as needed. omeprazole omeprazole No 1capsul Q1D omeprazole [facility] 20 mg 20 mg e(s) 20 mg Family capsule,del capsule,del capsule,de Practic ayed ayed layed e release release release Take 1 Take 1 Take 1 capsule capsule capsule every day every day every day by oral by oral by oral route. route. route. Immunizations Ordered Immunization Filled Immunization Date Status Commen ts Source Name Name influenza, influenza, 2019-08-11 Completed [facility] injectable, injectable, 14:00:53 Practice quadrivalent, quadrivalent, preservative free preservative free Tdap Tdap 2018-01-12 Completed [facility] 16:09:49 Practice Influenza, Influenza, 2018-01-12 [facility] injectable, MDCK, injectable, MDCK, 16:09:23 Practice quadrivalent quadrivalent influenza, influenza, 2014-08-20 Completed [facility] injectable, injectable, 00:00:00 Practice quadrivalent quadrivalent Vital Signs Vital Name Observation Time Observation Value Comments Source BP Diastolic 2020-01-24 00:00:00 63 mm[Hg] [facility] Height 2020-01-24 00:00:00 64 [in_i] [facility] BMI (Body Mass 2020-01-24 00:00:00 30.3 kg/m2 [facility] BP Systolic 2020-01-24 00:00:00 99 mm[Hg] [facility] Body Weight 2020-01-24 00:00:00 176.8 [lb_av] [facility] BP Diastolic 2020-01-10 00:00:00 70 mm[Hg] [facility] Height 2020-01-10 00:00:00 64 [in_i] [facility] BMI (Body Mass 2020-01-10 00:00:00 30 kg/m2 [facility] BP Systolic 2020-01-10 00:00:00 120 mm[Hg] [facility] Body Weight 2020-01-10 00:00:00 175 [lb_av] [facility] BP Diastolic 2019-10-31 00:00:00 80 mm[Hg] [facility] Height 2019-10-31 00:00:00 64 [in_i] [facility] BMI (Body Mass 2019-10-31 00:00:00 26.7 kg/m2 [facility] BP Systolic 2019-10-31 00:00:00 120 mm[Hg] [facility] Body Weight 2019-10-31 00:00:00 155.4 [lb_av] [facility] BP Diastolic 2019-08-11 00:00:00 70 mm[Hg] [facility] Height 2019-08-11 00:00:00 64 [in_i] [facility] BMI (Body Mass 2019-08-11 00:00:00 29 kg/m2 [facility] BP Systolic 2019-08-11 00:00:00 122 mm[Hg] [facility] Body Weight 2019-08-11 00:00:00 168.8 [lb_av] [facility] BP Diastolic 2019-05-12 00:00:00 70 mm[Hg] [facility] Height 2019-05-12 00:00:00 64 [in_i] [facility] BMI (Body Mass 2019-05-12 00:00:00 28.3 kg/m2 [facility] BP Systolic 2019-05-12 00:00:00 128 mm[Hg] [facility] Body Weight 2019-05-12 00:00:00 165 [lb_av] [facility] BP Diastolic 2019-05-09 00:00:00 72 mm[Hg] [facility] Height 2019-05-09 00:00:00 64 [in_i] [facility] BMI (Body Mass 2019-05-09 00:00:00 28 kg/m2 [facility] BP Systolic 2019-05-09 00:00:00 112 mm[Hg] [facility] Body Weight 2019-05-09 00:00:00 163 [lb_av] [facility] Procedures Procedure Date / Time Performing Clinician Source Performed US, pelvis, 2019-08-11 00:00:00 [facility] Vero ly transabdominal + Practice transvaginal Tonsillectomy [facility] Plan of Care Planned Activity Planned Date Details Comments Source Diagnostic Test 2020-01-24 unlisted lab [code [facility] co[facility] Pending 00:00:00 = unlisted lab] Practice Diagnostic Test 2020-01-24 RPR (rapid plasma [facility] Pending 00:00:00 reagin), Practice quantitative, serum [code = RPR (rapid plasma reagin), quantitative, serum] Diagnostic Test 2020-01-24 herpes simplex [facility] Pending 00:00:00 virus 2 Ab, IgG, Practice QL, IA, serum or plasma [code = herpes simplex virus 2 Ab, IgG, QL, IA, serum or plasma] Diagnostic Test 2020-01-24 hepatitis C virus [facility] Pending 00:00:00 RNA, quant, PCR, Practice serum or plasma [code = hepatitis C virus RNA, quant, PCR, serum or plasma] Diagnostic Test 2020-01-24 HBsAg (hepatitis B [facility] Pending 00:00:00 surface Ag), Practice confirmation, serum [code = HBsAg (hepatitis B surface Ag), confirmation, serum] Diagnostic Test 2020-01-24 CT + NG RNA, urine [facility] Pending 00:00:00 [code = CT + NG Practice RNA, urine] Instructions [facility] Encounters Start End Encounter Admission Attending Care Care Encounter Source Date/Time Date/Time Type Type Clinicians Facility Department ID 2019-12-02 Inpatient HCAWU RUBÉN [id number] [facility] 04:42:00 [id number] [facility] 2021-06-19 2021-06-19 Emergency EM FLORI Izquierdo [id number] [facility] 04:38:00 06:30:00 Hemal [id number] [facility] 2020-07-28 2020-07-28 Outpatient E [facility] [id number] [facility] 22:49:00 22:49:00 2020-07-28 2020-07-28 Emergency E [facility] [id number] 19:24:00 19:24:00 [facility] 2020-05-30 2020-05-30 Emergency E [facility] [id number] 09:38:00 09:38:00 [facility] 2020-03-21 2020-03-21 Emergency E [facility] [id number] 19:28:00 19:28:00 [facility] 2020-01-24 2020-01-[address] [facility] [place] - [id number] [facility] 00:00:00 [facility]00[facility] , DO: Medical - Practi c [id number]Cypr [address] [place] [address] Rothmanluis [address]fredopeter ([facility], [place] [address] , Ph. 2020-01-10 2020-01-[address] [facility] [place] - [id number] V illage 00:00:00 00:00:00 MD Stefanie: [facility] [address] Medical - Prac tic [facility], VM[address]HOU[address]Memo [address], [place] [address] , Ph. 2019-12-02 2019-12-02 Outpatient [facility], [facility] [id number] [facility] 07:41:00 07:41:00 Lam [facility] 2019-10-31 2019-10-[address] [facility] [place] - [id number] V illage 00:00:00 00:00:00 Edward [facility] Robertireddy, Medical - Pra ct MD: [id number] [facility], [address] [address] , Ph. 2019-08-11 2019-08-[address] [facility] [place] - [id number] V illage 00:00:00 00:00:00 DocCheko Famil y PA: [address] Family Pract[facility] Practice - e [facility], [facility] [address], [place] [address] , Ph. 2019-05-12 2019-05-[address] [facility] [place] - [id number] V illage 00:00:00 00:00:00 DocCheko Famil y PA: [address] [facility] Pract[facility] Practice - e [facility], [facility] [address], [place] [address] , Ph. 2019-05-09 2019-05-09MayElsy Lyndsey [facility] [place] - [id number] V illage 00:00:00 00:00:00 MD Stefanie: [facility] [address] Yeboah Practi raymond Kendrick, Practice - e [address], [facility] [place], [place] [address] , Ph. Results Test Description Test Time Test Comments Results Result Comments Source URINALYSIS COMPLETE 2019-12-02 11:09:00 Test Item Value Reference Range Interpretation Comme nts UA COLOR (test code = COLU) YELLOW YELLOW ORANGE UA APPEARANCE (test code = CLEAR CLEAR APPU) UA GLUCOSE DIPSTICK (test code NORMAL MG/DL NORMAL = DGLUU) UA BILIRUBIN DIPSTICK (test 6 MG/DL NEGATIVE A code = BILU) UA KETONE DIPSTICK (test code = NEGATIVE MG/DL NEGATIVE KETU) UA SPECIFIC GRAVITY (test code 1.020 1.003-1.030 N = SGU) UA BLOOD DIPSTICK (test code = 10 Jatinder/mm3 NEGATIVE A ANDREAS) UA PH DIPSTICK (test code = 6.0 5.0-9.0 N CHANTALE) UA PROTEIN DIPSTICK (test code 30 MG/DL NEGATIVE A = PROU) UA UROBILINIOGEN DIPSTICK (test 12 MG/DL NORMAL A code = URO) UA NITRITE DIPSTICK (test code POSITIVE NEGATIVE A = LEIGH ANN) UA LEUKOCYTE ESTERASE DIPSTICK 500 /mm3 NEGATIVE A (test code = LEUU) UA CULTURE NEEDED? (test code = YES,WBC>10 & EPI<25 Culture Chk UACULT) Criteria SOURCE OF URINE: CLEAN CATCHUA ICTOTEST FOR [id number] 11:09:00 Test Item Value Reference Range Interpretation Comments UA ICTOTEST FOR BILIRUBIN (test code POSITIVE NEGATIVE A = ICTOU) SOURCE OF URINE: CLEAN CATCHUA [id number] 11:09:00 Test Item Value Reference Range Interpretation Comments UA RBC (test code = RBCU) 0-3 RBC/HPF 0-3 UA WBC (test code = XWBCU) 20-30 WBC/HPF 0-5 A UA EPITHELIAL CELLS (test code FEW EPI/HPF FEW = EPIU) UA BACTERIA (test code = XBACU) MODERATE NONE A SOURCE OF URINE: CLEAN CATCHDRUGS OF ABUSE SCREEN [id number] 11:09:00 Test Item Value Reference Range Interpretation Comments UR COCAINE (test code = POSITIVE NEGATIVE A This is a Screening COCAU) test and the Re sults are to be used for medical purpose s only.Cut off Va lue: 300 ng/mL UR CANNABINOIDS (THC) POSITIVE NEGATIVE Cut of f Value: 50 (test code = CANU) ng/mL UR AMPHETAMINE (test code POSITIVE NEGATIVE A Th is is a Screening = AMPHU) test and the Re sults are to be used for medical purpose s only.Cut off Va lue: 1000 ng/mL UR BARBITURATE QUAL (test NEGATIVE NEGATIVE Cu t off Value: 200 code = BARBQLU) ng/mL UR BENZODIAZEPINE (test POSITIVE NEGATIVE Cut off Value: 200 code = BENZU) ng/mL UR OPIATES QUAL (test POSITIVE NEGATIVE Cut of f Value: 300 code = OPIAQLU) ng/mL UR PHENCYCLIDINE (PCP) NEGATIVE NEGATIVE Cut o ff Value: 25 (test code = PHENCU) ng/mL SOURCE OF URINE: CLEAN CATCHURN [id number] 11:06:00 Test Item Value Reference Range Interpretation Comments URN AMPHETAMINE (test POSITIVE NEGATIVE A RESULT S CALLED TO code = AMPHETURN) CATHYREAD BACK & CONFIRMED? YESB Y F.[facility] 11/15 07/04 1105 RESULTS S ENT FOR CONFIRMATION OF SCREEN RESULTSSEE OTHE R SPECIMEN FOR CONFIRMATION RE SULTS These results a re to be used only for m edical (ie,treatment) purposes. Uncon firmed screening resul ts must notbe used for non-medical pur poses (eg, employment testing)DETECTI ON CUT OFF: 500 ng/mLC ut off Value: 1000 ng/ mL URN [id number] 11:05:00 Test Item Value Reference Range Interpretation Comments URN AMPHETAMINE (test POSITIVE NEGATIVE A RESULT S CALLED TO code = AMPHETURN) CATHYREAD BACK & CONFIRMED? YESB Y F.[facility] 11/15 07/04 1105 RESULTS S ENT FOR CONFIRMATION OF SCREEN RESULTSSEE OTHE R SPECIMEN FOR CONFIRMATION RE SULTS These results a re to be used only for m edical (ie,treatment) purposes. Uncon firmed screening resul ts must notbe used for non-medical pur poses (eg, employment testing)DETECTI ON CUT OFF: 500 ng/mL URINALYSIS [id number] 07:09:00 Test Item Value Reference Range Interpretation Comments UA COLOR (test code = YELLOW YELLOW ORANGE COLU) UA APPEARANCE (test CLEAR CLEAR code = APPU) UA GLUCOSE DIPSTICK NORMAL MG/DL NORMAL (test code = DGLUU) UA BILIRUBIN DIPSTICK 6 MG/DL NEGATIVE A (test code = BILU) UA KETONE DIPSTICK NEGATIVE MG/DL NEGATIVE (test code = KETU) UA SPECIFIC GRAVITY 1.020 1.003-1.030 N (test code = SGU) UA BLOOD DIPSTICK (test 10 Jatinder/mm3 NEGATIVE A code = ANDREAS) UA PH DIPSTICK (test 6.0 5.0-9.0 N code = CHANTALE) UA PROTEIN DIPSTICK 30 MG/DL NEGATIVE A (test code = PROU) UA UROBILINIOGEN 12 MG/DL NORMAL A DIPSTICK (test code = URO) UA NITRITE DIPSTICK POSITIVE NEGATIVE A (test code = LEIGH ANN) UA LEUKOCYTE ESTERASE 500 /mm3 NEGATIVE A DIPSTICK (test code = LEUU) UA CULTURE NEEDED? YES,WBC>10 & Culture Chk (test code = UACULT) EPI<25 Criteria SOURCE OF URINE: CLEAN CATCHUA ICTOTEST FOR [id number] 07:09:00 Test Item Value Reference Range Interpretation Comments UA ICTOTEST FOR BILIRUBIN (test code POSITIVE NEGATIVE A = ICTOU) SOURCE OF URINE: CLEAN CATCHUA [id number] 07:09:00 Test Item Value Reference Range Interpretation Comments UA RBC (test code = RBCU) 0-3 RBC/HPF 0-3 UA WBC (test code = XWBCU) 20-30 WBC/HPF 0-5 A UA EPITHELIAL CELLS (test code FEW EPI/HPF FEW = EPIU) UA BACTERIA (test code = XBACU) MODERATE NONE A SOURCE OF URINE: CLEAN CATCHDRUGS OF ABUSE SCREEN [id number] 07:09:00 Test Item Value Reference Range Interpretation Comments UR COCAINE (test code = POSITIVE NEGATIVE A This is a Screening COCAU) test and the Re sults are to be used for medical purpose s only.Cut off Va lue: 300 ng/mL UR CANNABINOIDS (THC) POSITIVE NEGATIVE Cut of f Value: 50 (test code = CANU) ng/mL UR AMPHETAMINE (test code NEGATIVE = AMPHU) UR BARBITURATE QUAL (test NEGATIVE NEGATIVE Cu t off Value: 200 code = BARBQLU) ng/mL UR BENZODIAZEPINE (test POSITIVE NEGATIVE Cut off Value: 200 code = BENZU) ng/mL UR OPIATES QUAL (test POSITIVE NEGATIVE Cut of f Value: 300 code = OPIAQLU) ng/mL UR PHENCYCLIDINE (PCP) NEGATIVE NEGATIVE Cut o ff Value: 25 (test code = PHENCU) ng/mL SOURCE OF URINE: CLEAN CATCHURINALYSIS [id number] 07:05:00 Test Item Value Reference Range Interpretation Comments UA COLOR (test code = YELLOW YELLOW ORANGE COLU) UA APPEARANCE (test CLEAR CLEAR code = APPU) UA GLUCOSE DIPSTICK NORMAL MG/DL NORMAL (test code = DGLUU) UA BILIRUBIN DIPSTICK 6 MG/DL NEGATIVE A (test code = BILU) UA KETONE DIPSTICK NEGATIVE MG/DL NEGATIVE (test code = KETU) UA SPECIFIC GRAVITY 1.020 1.003-1.030 N (test code = SGU) UA BLOOD DIPSTICK (test 10 Jatinder/mm3 NEGATIVE A code = ANDREAS) UA PH DIPSTICK (test 6.0 5.0-9.0 N code = CHANTALE) UA PROTEIN DIPSTICK 30 MG/DL NEGATIVE A (test code = PROU) UA UROBILINIOGEN 12 MG/DL NORMAL A DIPSTICK (test code = URO) UA NITRITE DIPSTICK POSITIVE NEGATIVE A (test code = LEIGH ANN) UA LEUKOCYTE ESTERASE 500 /mm3 NEGATIVE A DIPSTICK (test code = LEUU) UA CULTURE NEEDED? YES,WBC>10 & Culture Chk (test code = UACULT) EPI<25 Criteria SOURCE OF URINE: CLEAN CATCHUA ICTOTEST FOR [id number] 07:05:00 Test Item Value Reference Range Interpretation Comments UA ICTOTEST FOR BILIRUBIN (test code POSITIVE NEGATIVE A = ICTOU) SOURCE OF URINE: CLEAN CATCHUA [id number] 07:05:00 Test Item Value Reference Range Interpretation Comments UA RBC (test code = RBCU) 0-3 RBC/HPF 0-3 UA WBC (test code = XWBCU) 20-30 WBC/HPF 0-5 A UA EPITHELIAL CELLS (test code FEW EPI/HPF FEW = EPIU) UA BACTERIA (test code = XBACU) MODERATE NONE A SOURCE OF URINE: CLEAN CATCHDRUGS OF ABUSE SCREEN [id number] 07:05:00 Test Item Value Reference Range Interpretation Comments UR COCAINE (test code = NEGATIVE COCAU) UR CANNABINOIDS (THC) NEGATIVE (test code = CANU) UR AMPHETAMINE (test code NEGATIVE = AMPHU) UR BARBITURATE QUAL (test NEGATIVE NEGATIVE Cu t off Value: 200 code = BARBQLU) ng/mL UR BENZODIAZEPINE (test NEGATIVE code = BENZU) UR OPIATES QUAL (test code NEGATIVE = OPIAQLU) UR PHENCYCLIDINE (PCP) NEGATIVE NEGATIVE Cut o ff Value: 25 (test code = PHENCU) ng/mL SOURCE OF URINE: CLEAN CATCHURINALYSIS [id number] 07:05:00 Test Item Value Reference Range Interpretation Comments UA COLOR (test code = YELLOW YELLOW ORANGE COLU) UA APPEARANCE (test CLEAR CLEAR code = APPU) UA GLUCOSE DIPSTICK NORMAL MG/DL NORMAL (test code = DGLUU) UA BILIRUBIN DIPSTICK 6 MG/DL NEGATIVE A (test code = BILU) UA KETONE DIPSTICK NEGATIVE MG/DL NEGATIVE (test code = KETU) UA SPECIFIC GRAVITY 1.020 1.003-1.030 N (test code = SGU) UA BLOOD DIPSTICK (test 10 Jatinder/mm3 NEGATIVE A code = ANDREAS) UA PH DIPSTICK (test 6.0 5.0-9.0 N code = CHANTALE) UA PROTEIN DIPSTICK 30 MG/DL NEGATIVE A (test code = PROU) UA UROBILINIOGEN 12 MG/DL NORMAL A DIPSTICK (test code = URO) UA NITRITE DIPSTICK POSITIVE NEGATIVE A (test code = LEIGH ANN) UA LEUKOCYTE ESTERASE 500 /mm3 NEGATIVE A DIPSTICK (test code = LEUU) UA CULTURE NEEDED? YES,WBC>10 & Culture Chk (test code = UACULT) EPI<25 Criteria SOURCE OF URINE: CLEAN CATCHUA ICTOTEST FOR [id number] 07:05:00 Test Item Value Reference Range Interpretation Comments UA ICTOTEST FOR BILIRUBIN (test code POSITIVE NEGATIVE A = ICTOU) SOURCE OF URINE: CLEAN CATCHUA [id number] 07:05:00 Test Item Value Reference Range Interpretation Comments UA RBC (test code = RBCU) 0-3 RBC/HPF 0-3 UA WBC (test code = XWBCU) 20-30 WBC/HPF 0-5 A UA EPITHELIAL CELLS (test code FEW EPI/HPF FEW = EPIU) UA BACTERIA (test code = XBACU) MODERATE NONE A SOURCE OF URINE: CLEAN CATCHDRUGS OF ABUSE SCREEN [id number] 07:05:00 Test Item Value Reference Range Interpretation Comments UR COCAINE (test code = NEGATIVE COCAU) UR CANNABINOIDS (THC) NEGATIVE (test code = CANU) UR AMPHETAMINE (test code NEGATIVE = AMPHU) UR BARBITURATE QUAL (test NEGATIVE NEGATIVE Cu t off Value: 200 code = BARBQLU) ng/mL UR BENZODIAZEPINE (test POSITIVE NEGATIVE Cut off Value: 200 code = BENZU) ng/mL UR OPIATES QUAL (test code NEGATIVE = OPIAQLU) UR PHENCYCLIDINE (PCP) NEGATIVE NEGATIVE Cut o ff Value: 25 (test code = PHENCU) ng/mL SOURCE OF URINE: CLEAN CATCHURINALYSIS [id number] 06:58:00 Test Item Value Reference Range Interpretation Comments UA COLOR (test code = YELLOW YELLOW ORANGE COLU) UA APPEARANCE (test CLEAR CLEAR code = APPU) UA GLUCOSE DIPSTICK NORMAL MG/DL NORMAL (test code = DGLUU) UA BILIRUBIN DIPSTICK 6 MG/DL NEGATIVE A (test code = BILU) UA KETONE DIPSTICK NEGATIVE MG/DL NEGATIVE (test code = KETU) UA SPECIFIC GRAVITY 1.020 1.003-1.030 N (test code = SGU) UA BLOOD DIPSTICK (test 10 Jatinder/mm3 NEGATIVE A code = ANDREAS) UA PH DIPSTICK (test 6.0 5.0-9.0 N code = CHANTALE) UA PROTEIN DIPSTICK 30 MG/DL NEGATIVE A (test code = PROU) UA UROBILINIOGEN 12 MG/DL NORMAL A DIPSTICK (test code = URO) UA NITRITE DIPSTICK POSITIVE NEGATIVE A (test code = LEIGH ANN) UA LEUKOCYTE ESTERASE 500 /mm3 NEGATIVE A DIPSTICK (test code = LEUU) UA CULTURE NEEDED? YES,WBC>10 & Culture Chk (test code = UACULT) EPI<25 Criteria SOURCE OF URINE: CLEAN CATCHUA ICTOTEST FOR [id number] 06:58:00 Test Item Value Reference Range Interpretation Comments UA ICTOTEST FOR BILIRUBIN (test code POSITIVE NEGATIVE A = ICTOU) SOURCE OF URINE: CLEAN CATCHUA [id number] 06:58:00 Test Item Value Reference Range Interpretation Comments UA RBC (test code = RBCU) 0-3 RBC/HPF 0-3 UA WBC (test code = XWBCU) 20-30 WBC/HPF 0-5 A UA EPITHELIAL CELLS (test code FEW EPI/HPF FEW = EPIU) UA BACTERIA (test code = XBACU) MODERATE NONE A SOURCE OF URINE: CLEAN CATCHDRUGS OF ABUSE SCREEN [id number] 06:58:00 Test Item Value Reference Range Interpretation Comments UR COCAINE (test code = NEGATIVE COCAU) UR CANNABINOIDS (THC) NEGATIVE (test code = CANU) UR AMPHETAMINE (test code NEGATIVE = AMPHU) UR BARBITURATE QUAL (test NEGATIVE code = BARBQLU) UR BENZODIAZEPINE (test NEGATIVE code = BENZU) UR OPIATES QUAL (test code NEGATIVE = OPIAQLU) UR PHENCYCLIDINE (PCP) NEGATIVE NEGATIVE Cut o ff Value: 25 (test code = PHENCU) ng/mL SOURCE OF URINE: CLEAN CATCHURINALYSIS [id number] 06:54:00 Test Item Value Reference Range Interpretation Comments UA COLOR (test code = YELLOW YELLOW ORANGE COLU) UA APPEARANCE (test CLEAR CLEAR code = APPU) UA GLUCOSE DIPSTICK NORMAL MG/DL NORMAL (test code = DGLUU) UA BILIRUBIN DIPSTICK 6 MG/DL NEGATIVE A (test code = BILU) UA KETONE DIPSTICK NEGATIVE MG/DL NEGATIVE (test code = KETU) UA SPECIFIC GRAVITY 1.020 1.003-1.030 N (test code = SGU) UA BLOOD DIPSTICK (test 10 Jatinder/mm3 NEGATIVE A code = ANDREAS) UA PH DIPSTICK (test 6.0 5.0-9.0 N code = CHANTALE) UA PROTEIN DIPSTICK 30 MG/DL NEGATIVE A (test code = PROU) UA UROBILINIOGEN 12 MG/DL NORMAL A DIPSTICK (test code = URO) UA NITRITE DIPSTICK POSITIVE NEGATIVE A (test code = LEIGH ANN) UA LEUKOCYTE ESTERASE 500 /mm3 NEGATIVE A DIPSTICK (test code = LEUU) UA CULTURE NEEDED? YES,WBC>10 & Culture Chk (test code = UACULT) EPI<25 Criteria SOURCE OF URINE: CLEAN CATCHUA ICTOTEST FOR [id number] 06:54:00 Test Item Value Reference Range Interpretation Comments UA ICTOTEST FOR BILIRUBIN (test code POSITIVE NEGATIVE A = ICTOU) SOURCE OF URINE: CLEAN CATCHUA [id number] 06:54:00 Test Item Value Reference Range Interpretation Comments UA RBC (test code = RBCU) 0-3 RBC/HPF 0-3 UA WBC (test code = XWBCU) 20-30 WBC/HPF 0-5 A UA EPITHELIAL CELLS (test code FEW EPI/HPF FEW = EPIU) UA BACTERIA (test code = XBACU) MODERATE NONE A SOURCE OF URINE: CLEAN CATCHDRUGS OF ABUSE SCREEN [id number] 06:54:00 Test Item Value Reference Range Interpretation Comments UR COCAINE (test code = COCAU) NEGATIVE UR CANNABINOIDS (THC) (test code = NEGATIVE CANU) UR AMPHETAMINE (test code = AMPHU) NEGATIVE UR BARBITURATE QUAL (test code = NEGATIVE BARBQLU) UR BENZODIAZEPINE (test code = BENZU) NEGATIVE UR OPIATES QUAL (test code = OPIAQLU) NEGATIVE UR PHENCYCLIDINE (PCP) (test code = NEGATIVE PHENCU) SOURCE OF URINE: CLEAN CATCHURINALYSIS [id number] 06:49:00 Test Item Value Reference Range Interpretation Comments UA COLOR (test code = YELLOW YELLOW ORANGE COLU) UA APPEARANCE (test code CLEAR CLEAR = APPU) UA GLUCOSE DIPSTICK (test NORMAL MG/DL NORMAL code = DGLUU) UA BILIRUBIN DIPSTICK 6 MG/DL NEGATIVE A (test code = BILU) UA KETONE DIPSTICK (test NEGATIVE MG/DL NEGATIVE code = KETU) UA SPECIFIC GRAVITY (test 1.020 1.003-1.030 N code = SGU) UA BLOOD DIPSTICK (test 10 Jatinder/mm3 NEGATIVE A code = ANDREAS) UA PH DIPSTICK (test code 6.0 5.0-9.0 N = CHANTALE) UA PROTEIN DIPSTICK (test 30 MG/DL NEGATIVE A code = PROU) UA UROBILINIOGEN DIPSTICK 12 MG/DL NORMAL A (test code = URO) UA NITRITE DIPSTICK (test POSITIVE NEGATIVE A code = LEIGH ANN) UA LEUKOCYTE ESTERASE 500 /mm3 NEGATIVE A DIPSTICK (test code = LEUU) UA CULTURE NEEDED? (test Criteria Culture Chk code = UACULT) SOURCE OF URINE: CLEAN CATCHUA ICTOTEST FOR [id number] 06:49:00 Test Item Value Reference Range Interpretation Comments UA ICTOTEST FOR BILIRUBIN (test code POSITIVE NEGATIVE A = ICTOU) SOURCE OF URINE: CLEAN CATCHUA [id number] 06:49:00 Test Item Value Reference Range Interpretation Comments UA RBC (test code = RBCU) RBC/HPF 0-3 UA WBC (test code = XWBCU) WBC/HPF 0-5 UA EPITHELIAL CELLS (test code = EPI/HPF FEW EPIU) UA BACTERIA (test code = XBACU) NONE SOURCE OF URINE: CLEAN CATCHDRUGS OF ABUSE SCREEN [id number] 06:49:00 Test Item Value Reference Range Interpretation Comments UR COCAINE (test code = COCAU) NEGATIVE UR CANNABINOIDS (THC) (test code = NEGATIVE CANU) UR AMPHETAMINE (test code = AMPHU) NEGATIVE UR BARBITURATE QUAL (test code = NEGATIVE BARBQLU) UR BENZODIAZEPINE (test code = BENZU) NEGATIVE UR OPIATES QUAL (test code = OPIAQLU) NEGATIVE UR PHENCYCLIDINE (PCP) (test code = NEGATIVE PHENCU) SOURCE OF URINE: CLEAN CATCHURINALYSIS [id number] 06:42:00 Test Item Value Reference Range Interpretation Comments UA COLOR (test code = COLU) YELLOW UA APPEARANCE (test code = CLEAR APPU) UA GLUCOSE DIPSTICK (test code NORMAL MG/DL NORMAL = DGLUU) UA BILIRUBIN DIPSTICK (test 6 MG/DL NEGATIVE A code = BILU) UA KETONE DIPSTICK (test code NEGATIVE MG/DL NEGATIVE = KETU) UA SPECIFIC GRAVITY (test code 1.020 1.003-1.030 N = SGU) UA BLOOD DIPSTICK (test code = 10 Jatinder/mm3 NEGATIVE A ANDREAS) UA PH DIPSTICK (test code = 6.0 5.0-9.0 N CHANTALE) UA PROTEIN DIPSTICK (test code 30 MG/DL NEGATIVE A = PROU) UA UROBILINIOGEN DIPSTICK 12 MG/DL NORMAL A (test code = URO) UA NITRITE DIPSTICK (test code POSITIVE NEGATIVE A = LEIGH ANN) UA LEUKOCYTE ESTERASE DIPSTICK 500 /mm3 NEGATIVE A (test code = LEUU) UA CULTURE NEEDED? (test code Criteria Culture Chk = UACULT) SOURCE OF URINE: CLEAN CATCHUA ICTOTEST FOR [id number] 06:42:00 Test Item Value Reference Range Interpretation Comments UA ICTOTEST FOR BILIRUBIN (test code = NEGATIVE ICTOU) SOURCE OF URINE: CLEAN CATCHUA [id number] 06:42:00 Test Item Value Reference Range Interpretation Comments UA RBC (test code = RBCU) RBC/HPF 0-3 UA WBC (test code = XWBCU) WBC/HPF 0-5 UA EPITHELIAL CELLS (test code = EPI/HPF FEW EPIU) UA BACTERIA (test code = XBACU) NONE SOURCE OF URINE: CLEAN CATCHDRUGS OF ABUSE SCREEN [id number] 06:42:00 Test Item Value Reference Range Interpretation Comments UR COCAINE (test code = COCAU) NEGATIVE UR CANNABINOIDS (THC) (test code = NEGATIVE CANU) UR AMPHETAMINE (test code = AMPHU) NEGATIVE UR BARBITURATE QUAL (test code = NEGATIVE BARBQLU) UR BENZODIAZEPINE (test code = BENZU) NEGATIVE UR OPIATES QUAL (test code = OPIAQLU) NEGATIVE UR PHENCYCLIDINE (PCP) (test code = NEGATIVE PHENCU) SOURCE OF URINE: CLEAN CATCHURINALYSIS [id number] 06:42:00 Test Item Value Reference Range Interpretation Comments UA COLOR (test code = COLU) YELLOW UA APPEARANCE (test code = CLEAR APPU) UA GLUCOSE DIPSTICK (test code NORMAL MG/DL NORMAL = DGLUU) UA BILIRUBIN DIPSTICK (test 6 MG/DL NEGATIVE A code = BILU) UA KETONE DIPSTICK (test code NEGATIVE MG/DL NEGATIVE = KETU) UA SPECIFIC GRAVITY (test code 1.020 1.003-1.030 N = SGU) UA BLOOD DIPSTICK (test code = 10 Jatinder/mm3 NEGATIVE A ANDREAS) UA PH DIPSTICK (test code = 6.0 5.0-9.0 N CHANTALE) UA PROTEIN DIPSTICK (test code 30 MG/DL NEGATIVE A = PROU) UA UROBILINIOGEN DIPSTICK 12 MG/DL NORMAL A (test code = URO) UA NITRITE DIPSTICK (test code POSITIVE NEGATIVE A = LEIGH ANN) UA LEUKOCYTE ESTERASE DIPSTICK 500 /mm3 NEGATIVE A (test code = LEUU) UA CULTURE NEEDED? (test code Criteria Culture Chk = UACULT) SOURCE OF URINE: CLEAN CATCHUA ICTOTEST FOR [id number] 06:42:00 Test Item Value Reference Range Interpretation Comments UA ICTOTEST FOR BILIRUBIN (test code = NEGATIVE ICTOU) SOURCE OF URINE: CLEAN CATCHUA [id number] 06:42:00 Test Item Value Reference Range Interpretation Comments UA RBC (test code = RBCU) RBC/HPF 0-3 UA WBC (test code = XWBCU) WBC/HPF 0-5 UA EPITHELIAL CELLS (test code = EPI/HPF FEW EPIU) UA BACTERIA (test code = XBACU) NONE SOURCE OF URINE: CLEAN CATCHDRUGS OF ABUSE SCREEN [id number] 06:42:00 Test Item Value Reference Range Interpretation Comments UR COCAINE (test code = COCAU) NEGATIVE UR CANNABINOIDS (THC) (test code = NEGATIVE CANU) UR AMPHETAMINE (test code = AMPHU) NEGATIVE UR BARBITURATE QUAL (test code = NEGATIVE BARBQLU) UR BENZODIAZEPINE (test code = BENZU) NEGATIVE UR OPIATES QUAL (test code = OPIAQLU) NEGATIVE UR PHENCYCLIDINE (PCP) (test code = NEGATIVE PHENCU) SOURCE OF URINE: CLEAN CATCHBASIC METABOLIC [id number] 06:14:00 Test Item Value Reference Range Interpretation Comments SODIUM (test code = 139 MMOL/L 137-145 N NA) POTASSIUM (test code = 3.3 MMOL/L 3.5-5.1 L K) CHLORIDE (test code = 99 MMOL/L 98-107 N CL) CARBON DIOXIDE (test 28 MMOL/L 22-30 N code = CO2) GLUCOSE (test code = 82 MG/DL 74-106 N GLU) BLOOD UREA NITROGEN 9 MG/DL 7-17 N (test code = BUN) GLOMERULAR FILTRATION > 60 Report ing units: RATE (test code = GFR) ml/mi n/1.73 m2 (Modified MDRD Formula)Referen ce Range: > or = 6 0 ml/min/1.73 m2 CREATININE (test code 0.70 MG/DL 0.52-1.04 N = CREAT) CALCIUM (test code = 9.4 MG/DL 8.4-10.2 N CA) HEPATIC FUNCTION [id number] 06:14:00 Test Item Value Reference Range Interpretation Comments TOTAL PROTEIN (test code = PROT) 8.3 G/DL 6.3-8.2 H ALBUMIN (test code = ALB) 4.8 G/DL 3.5-5.0 N BILIRUBIN TOTAL (test code = BILT) 0.2 MG/DL 0.2-1.3 N BILIRUBIN DIRECT (test code = 0.0 MG/DL 0.0-0.3 N BILD) SGOT/AST (test code = AST) 27 UNITS/L 14-36 N SGPT/ALT (test code = ALT) 17 UNITS/L <35 ALKALINE PHOSPHATASE (test code = 70 UNITS/L 38-126 N ALKP) HCG SERUM [id number] 06:14:00 Test Item Value Reference Range Interpretation Comments HCG SERUM QUAL (test code = HCGQL) NEGATIVE NEGATIVE A [id number] 06:14:00 Test Item Value Reference Range Interpretation Comments ACETAMINOPHEN (test code = < 10.0 MCG/ML 10-30 L ACET) [id number] 06:14:00 Test Item Value Reference Range Interpretation Comments SALICYLATE (test code = OKSANA) < 1.0 MG/DL <2.0 [id number] 06:14:00 Test Item Value Reference Range Interpretation Comments ALCOHOL (test code = ALC) < 10.0 MG/DL <10 BASIC METABOLIC [id number] 06:05:00 Test Item Value Reference Range Interpretation Comments SODIUM (test code = 139 MMOL/L 137-145 N NA) POTASSIUM (test code = 3.3 MMOL/L 3.5-5.1 L K) CHLORIDE (test code = 99 MMOL/L 98-107 N CL) CARBON DIOXIDE (test 28 MMOL/L 22-30 N code = CO2) GLUCOSE (test code = 82 MG/DL 74-106 N GLU) BLOOD UREA NITROGEN 9 MG/DL 7-17 N (test code = BUN) GLOMERULAR FILTRATION > 60 Report ing units: RATE (test code = GFR) ml/mi n/1.73 m2 (Modified MDRD Formula)Referen ce Range: > or = 6 0 ml/min/1.73 m2 CREATININE (test code 0.70 MG/DL 0.52-1.04 N = CREAT) CALCIUM (test code = 9.4 MG/DL 8.4-10.2 N CA) HEPATIC FUNCTION [id number] 06:05:00 Test Item Value Reference Range Interpretation Comments TOTAL PROTEIN (test code = PROT) 8.3 G/DL 6.3-8.2 H ALBUMIN (test code = ALB) 4.8 G/DL 3.5-5.0 N BILIRUBIN TOTAL (test code = BILT) 0.2 MG/DL 0.2-1.3 N BILIRUBIN DIRECT (test code = 0.0 MG/DL 0.0-0.3 N BILD) SGOT/AST (test code = AST) 27 UNITS/L 14-36 N SGPT/ALT (test code = ALT) 17 UNITS/L <35 ALKALINE PHOSPHATASE (test code = 70 UNITS/L 38-126 N ALKP) HCG SERUM [id number] 06:05:00 Test Item Value Reference Range Interpretation Comments HCG SERUM QUAL (test code = HCGQL) NEGATIVE [id number] 06:05:00 Test Item Value Reference Range Interpretation Comments ACETAMINOPHEN (test code = < 10.0 MCG/ML 10-30 L ACET) [id number] 06:05:00 Test Item Value Reference Range Interpretation Comments SALICYLATE (test code = OKSANA) < 1.0 MG/DL <2.0 [id number] 06:05:00 Test Item Value Reference Range Interpretation Comments ALCOHOL (test code = ALC) < 10.0 MG/DL <10 BASIC METABOLIC [id number] 06:04:00 Test Item Value Reference Range Interpretation Comments SODIUM (test code = 139 MMOL/L 137-145 N NA) POTASSIUM (test code = 3.3 MMOL/L 3.5-5.1 L K) CHLORIDE (test code = 99 MMOL/L 98-107 N CL) CARBON DIOXIDE (test 28 MMOL/L 22-30 N code = CO2) GLUCOSE (test code = MG/DL 74-106 GLU) BLOOD UREA NITROGEN 9 MG/DL 7-17 N (test code = BUN) GLOMERULAR FILTRATION > 60 Report ing units: RATE (test code = GFR) ml/mi n/1.73 m2 (Modified MDRD Formula)Referen ce Range: > or = 6 0 ml/min/1.73 m2 CREATININE (test code 0.70 MG/DL 0.52-1.04 N = CREAT) CALCIUM (test code = MG/DL 8.7-9.7 CA) HEPATIC FUNCTION [id number] 06:04:00 Test Item Value Reference Range Interpretation Comments TOTAL PROTEIN (test code = PROT) 8.3 G/DL 6.3-8.2 H ALBUMIN (test code = ALB) 4.8 G/DL 3.5-5.0 N BILIRUBIN TOTAL (test code = BILT) 0.2 MG/DL 0.2-1.3 N BILIRUBIN DIRECT (test code = 0.0 MG/DL 0.0-0.3 N BILD) SGOT/AST (test code = AST) 27 UNITS/L 14-36 N SGPT/ALT (test code = ALT) UNITS/L <35 ALKALINE PHOSPHATASE (test code = UNITS/L 38-126 ALKP) HCG SERUM [id number] 06:04:00 Test Item Value Reference Range Interpretation Comments HCG SERUM QUAL (test code = HCGQL) NEGATIVE [id number] 06:04:00 Test Item Value Reference Range Interpretation Comments ACETAMINOPHEN (test code = ACET) MCG/ML 10-30 [id number] 06:04:00 Test Item Value Reference Range Interpretation Comments SALICYLATE (test code = OKSANA) MG/DL <2.0 [id number] 06:04:00 Test Item Value Reference Range Interpretation Comments ALCOHOL (test code = ALC) MG/DL <10 BASIC METABOLIC [id number] 06:02:00 Test Item Value Reference Range Interpretation Comments SODIUM (test code = NA) 139 MMOL/L 137-145 N POTASSIUM (test code = K) 3.3 MMOL/L 3.5-5.1 L CHLORIDE (test code = CL) 99 MMOL/L 98-107 N CARBON DIOXIDE (test code = CO2) MMOL/L 22-30 GLUCOSE (test code = GLU) MG/DL 74-106 BLOOD UREA NITROGEN (test code = MG/DL 7-17 BUN) GLOMERULAR FILTRATION RATE (test code = GFR) CREATININE (test code = CREAT) MG/DL 0.52-1.04 CALCIUM (test code = CA) MG/DL 8.7-9.7 HEPATIC FUNCTION [id number] 06:02:00 Test Item Value Reference Range Interpretation Comments TOTAL PROTEIN (test code = PROT) G/DL 6.3-8.2 ALBUMIN (test code = ALB) 4.8 G/DL 3.5-5.0 N BILIRUBIN TOTAL (test code = BILT) MG/DL 0.2-1.3 BILIRUBIN DIRECT (test code = BILD) MG/DL 0.0-0.3 SGOT/AST (test code = AST) UNITS/L 15-37 SGPT/ALT (test code = ALT) UNITS/L <35 ALKALINE PHOSPHATASE (test code = UNITS/L 38-126 ALKP) HCG SERUM [id number] 06:02:00 Test Item Value Reference Range Interpretation Comments HCG SERUM QUAL (test code = HCGQL) NEGATIVE [id number] 06:02:00 Test Item Value Reference Range Interpretation Comments ACETAMINOPHEN (test code = ACET) MCG/ML 10-30 [id number] 06:02:00 Test Item Value Reference Range Interpretation Comments SALICYLATE (test code = OKSANA) MG/DL <2.0 [id number] 06:02:00 Test Item Value Reference Range Interpretation Comments ALCOHOL (test code = ALC) MG/DL <10 BASIC METABOLIC [id number] 06:01:00 Test Item Value Reference Range Interpretation Comments SODIUM (test code = NA) MMOL/L 137-145 POTASSIUM (test code = K) MMOL/L 3.5-5.1 CHLORIDE (test code = CL) 99 MMOL/L 98-107 N CARBON DIOXIDE (test code = CO2) MMOL/L 22-30 GLUCOSE (test code = GLU) MG/DL 74-106 BLOOD UREA NITROGEN (test code = MG/DL 7-17 BUN) GLOMERULAR FILTRATION RATE (test code = GFR) CREATININE (test code = CREAT) MG/DL 0.52-1.04 CALCIUM (test code = CA) MG/DL 8.7-9.7 HEPATIC FUNCTION [id number] 06:01:00 Test Item Value Reference Range Interpretation Comments TOTAL PROTEIN (test code = PROT) G/DL 6.3-8.2 ALBUMIN (test code = ALB) 4.8 G/DL 3.5-5.0 N BILIRUBIN TOTAL (test code = BILT) MG/DL 0.2-1.3 BILIRUBIN DIRECT (test code = BILD) MG/DL 0.0-0.3 SGOT/AST (test code = AST) UNITS/L 15-37 SGPT/ALT (test code = ALT) UNITS/L <35 ALKALINE PHOSPHATASE (test code = UNITS/L 38-126 ALKP) HCG SERUM [id number] 06:01:00 Test Item Value Reference Range Interpretation Comments HCG SERUM QUAL (test code = HCGQL) NEGATIVE [id number] 06:01:00 Test Item Value Reference Range Interpretation Comments ACETAMINOPHEN (test code = ACET) MCG/ML 10-30 [id number] 06:01:00 Test Item Value Reference Range Interpretation Comments SALICYLATE (test code = OKSANA) MG/DL <2.0 [id number] 06:01:00 Test Item Value Reference Range Interpretation Comments ALCOHOL (test code = ALC) MG/DL <10 CBC W/AUTO [id number] 05:51:00 Test Item Value Reference Range Interpretation Comments WHITE BLOOD CELL (test code = 6.8 K/MM3 3.8-9.8 N WBC) RED BLOOD CELL (test code = 5.09 M/MM3 3.58-4.97 H RBC) HEMOGLOBIN (test code = HGB) 14.9 G/DL 11.2-14.9 N HEMATOCRIT (test code = HCT) 44.4 % 33.2-43.5 H MEAN CELL VOLUME (test code = 87 fL 80.7-99.1 N MCV) MEAN CELL HGB (test code = MCH) 29.3 pg 27.0-34.1 N MEAN CELL HGB CONCETRATION 33.6 % 32.2-35.7 N (test code = MCHC) RED CELL DISTRIBUTION WIDTH 12.2 % 12.1-15.2 N (test code = RDW) PLATELET COUNT (test code = 285 K/MM3 129-368 N PLT) MEAN PLATELET VOLUME (test code 9.7 fl 7.4-10.4 N = MPV) NEUTROPHIL % (test code = NT%) 69.2 % 43-75 N IMMATURE GRANULOCYTE % (test 0.6 % 0.0-2.0 N code = IG%) LYMPHOCYTE % (test code = LY%) 16.8 % 14-44 N MONOCYTE % (test code = MO%) 11.8 % 4-13 N EOSINOPHIL % (test code = EO%) 1.2 % 0-6 N BASOPHIL % (test code = BA%) 0.4 % 0-2 N NUCLEATED RBC % (test code = 0.0 % 0-1.0 N NRBC%) NEUTROPHIL # (test code = NT#) 4.70 K/mm3 2.0-7.6 N IMMATURE GRANULOCYTE # (test 0.04 x10 3/uL 0-0.03 H code = IG#) LYMPHOCYTE # (test code = LY#) 1.14 K/mm3 1.0-3.8 N MONOCYTE # (test code = MO#) 0.80 K/mm3 0.1-0.8 N EOSINOPHIL # (test code = EO#) 0.08 K/mm3 0.0-0.2 N BASOPHIL # (test code = BA#) 0.03 K/mm3 0.0-0.2 N NUCLEATED RBC # (test code = 0.00 K/mm3 0.0-0.1 N NRBC#) Choriogonadotropin.beta subunit [Units/volume] in Serum or [id number] 18:02:00 Test Item Value Reference Range Interpretation Comments HCG, total, qn (test code = HCG, total, <2 qn) [facility] [Units/volume] in Serum by [id number] 18:02:00 Test Item Value Reference Range Interpretation Comments RPR (DX) w/refl titer and non-reactive non-reactive confirmatory testing (test code = RPR (DX) w/refl titer and confirmatory testing) [facility] CenterHepatitis B virus surface Ag [Presence] in Serum or Plasma by Confirmatory [id number] 18:02:00 Test Item Value Reference Range Interpretation Comments hepatitis B surface antigen non-reactive non-reactive (test code = hepatitis B surface antigen) [facility] and abs screen, 4TH gen. w/rflx ([id number]) 2019-08-14 18:02:00 Test Item Value Reference Range Interpretation Comments HIV Ag/Ab, 4TH gen (test code = non-reactive non-reactive HIV Ag/Ab, 4TH gen) [facility] CenterHepatitis [facility] virus RNA [Units/volume] (viral load) in Serum or Plasma by Probe and target amplification [id number] 18:02:00 Test Item Value Reference Range Interpretation Comments hepatitis C antibody (test code non-reactive non-reactive = hepatitis C antibody) signal to cut-off (test code = 0.01 <1.00 signal to cut-off) [facility] CenterHerpes simplex virus 2 IgG Ab [Presence] in Serum by [id number] 18:02:00 Test Item Value Reference Range Interpretation Comments hsv 2 IgG, type specific Ab (test code <0.90 = hsv 2 IgG, type specific Ab) [facility] CenterChlamydia trachomatis+Neisseria gonorrhoeae rRNA [Presence] in Urine by DNA [id number] 18:14:00 Test Item Value Reference Range Interpretation Comments chlamydia trachomatis (urine) not detected molecular assay (test code = chlamydia trachomatis (urine) molecular assay) neisseria gonorrhoeae (urine) not detected molecular assay (test code = neisseria gonorrhoeae (urine) molecular assay) [facility] CenterCB W Auto Differential panel - [id number] 17:35:00 Test Item Value Reference Range Interpretation Comments WBC (test code = WBC) 6.38 x10*3/?L 3.98-10.04 RBC (test code = RBC) 4.29 10*12/L 3.93-5.22 hemoglobin (test code = 12.60 g/dL 11.20-15.70 hemoglobin) hematocrit (test code = 39.2 % 34.1-44.9 hematocrit) MCV (test code = MCV) 91.4 fL 80.0-100.0 MCH (test code = MCH) 29.4 pg 25.6-32.2 MCHC (test code = MCHC) 32.1 g/dL 32.2-35.5 L RDW-SD (test code = RDW-SD) 49.4 fL 36.4-46.3 H platelet count (test code = 399.0 k/uL 182.0-369.0 H platelet count) MPV (test code = MPV) 9.7 fL 7.5-11.5 neut% (test code = neut%) 52.7 % 34.0-71.1 lymph% (test code = lymph%) 34.8 % 19.3-51.7 mon% (test code = mon%) 10.0 % 4.7-12.5 eos% (test code = eos%) 2.0 % 0.7-5.8 baso% (test code = baso%) 0.5 % 0.1-1.2 neut# (test code = neut#) 3.4 x10*3/?L 1.6-6.1 lymph# (test code = lymph#) 2.2 x10*3/?L 1.2-3.7 mon# (test code = mon#) 0.6 x10*3/?L 0.2-0.9 eos# (test code = eos#) 0.13 x10*3/?L 0.04-0.36 baso# (test code = baso#) 0.03 x10*3/?L 0.01-0.08 [facility] 2000 [facility] - Serum or Plasma 2019-08-11 17:30:00 Test Item Value Reference Range Interpretation Comments ALT (test code = ALT) 38 U/L 0-55 AST (test code = AST) 22 U/L 5-34 BUN (test code = BUN) 15.5 mg/dL 7.0-25.0 alk phos (test code = alk phos) 80 unit/L 40-150 glucose (test code = glucose) 62 mg/dL 70-99 L albumin (test code = albumin) 4.1 g/dL 3.4-5.1 creatinine (test code = 0.72 mg/dL 0.57-1.11 creatinine) eGFR non- (test >60 code = eGFR non-) total bilirubin (test code = 0.3 mg/dL 0.2-1.2 total bilirubin) eGFR - (test >60 code = eGFR - ) sodium (test code = sodium) 139 mEq/L 135-145 potassium (test code = potassium) 4.3 mEq/L 3.5-5.1 chloride (test code = chloride) 101 mmol/L 98-110 total protein (test code = total 7.1 g/dL 6.1-8.2 protein) calcium (test code = calcium) 9.8 mg/dL 8.6-10.4 CO2 (test code = CO2) 31.7 mmol/L 20.0-32.0 anion gap (test code = anion gap) 6 calc [facility] CenterThyrotropin [Units/volume] in Serum or [id number] 17:30:00 Test Item Value Reference Range Interpretation Comments TSH (test code = TSH) 2.065 uIU/mL 0.350-4.940 [facility] CenterHerpes simplex virus 2 IgG Ab [Presence] in Serum by [id number] 09:11:00 Test Item Value Reference Range Interpretation Comments hsv 2 IgG, type specific Ab (test code <0.90 = hsv 2 IgG, type specific Ab) [facility]HIV[facility] Ag and abs screen, 4TH gen. w/rflx ([id number]) 2019-05-11 09:11:00 Test Item Value Reference Range Interpretation Comments HIV Ag/Ab, 4TH gen (test code = non-reactive non-reactive HIV Ag/Ab, 4TH gen) [facility] CenterHepatitis C virus RNA [Units/volume] (viral load) in Serum or Plasma by Probe and target amplification [id number] 09:11:00 Test Item Value Reference Range Interpretation Comments hepatitis C antibody (test code non-reactive non-reactive = hepatitis C antibody) signal to cut-off (test code = 0.01 <1.00 signal to cut-off) [facility] CenterReagin Ab [Units/volume] in Serum by [id number] 09:11:00 Test Item Value Reference Range Interpretation Comments RPR (DX) w/refl titer and non-reactive non-reactive confirmatory testing (test code = RPR (DX) w/refl titer and confirmatory testing) [facility] CenterHerpes simplex virus 2 IgG Ab [Presence] in Serum by [id number] 09:11:00 Test Item Value Reference Range Interpretation Comments hsv 2 IgG, type specific Ab (test code <0.90 = hsv 2 IgG, type specific Ab) [facility] CenterHIV[facility]2 Ag and abs screen, 4TH gen. w/rflx ([id number]) 2019-05-11 09:11:00 Test Item Value Reference Range Interpretation Comments HIV Ag/Ab, 4TH gen (test code = non-reactive non-reactive HIV Ag/Ab, 4TH gen) [facility] CenterHepatitis C virus RNA [Units/volume] (viral load) in Serum or Plasma by Probe and target amplification [id number] 09:11:00 Test Item Value Reference Range Interpretation Comments hepatitis C antibody (test code non-reactive non-reactive = hepatitis C antibody) signal to cut-off (test code = 0.01 <1.00 signal to cut-off) [facility] CenterRe[facility] Ab [Units/volume] in Serum by [id number] 09:11:00 Test Item Value Reference Range Interpretation Comments RPR (DX) w/refl titer and non-reactive non-reactive confirmatory testing (test code = RPR (DX) w/refl titer and confirmatory testing) [facility] CenterCom[facility] 1999 panel - Serum or Plasma 2019-05-10 09:45:00 Test Item Value Reference Range Interpretation Comments ALT (test code = ALT) 10 U/L 0-55 AST (test code = AST) 16 U/L 5-34 BUN (test code = BUN) 9.5 mg/dL 7.0-25.0 alk phos (test code = alk phos) 90 unit/L 40-150 glucose (test code = glucose) 77 mg/dL 70-99 albumin (test code = albumin) 4.4 g/dL 3.4-5.1 creatinine (test code = 0.72 mg/dL 0.57-1.11 creatinine) eGFR non- (test >60 code = eGFR non-) total bilirubin (test code = 0.5 mg/dL 0.2-1.2 total bilirubin) eGFR - (test >60 code = eGFR - ) sodium (test code = sodium) 139 mEq/L 135-145 potassium (test code = potassium) 4.0 mEq/L 3.5-5.1 chloride (test code = chloride) 102 mmol/L 98-110 total protein (test code = total 7.4 g/dL 6.1-8.2 protein) calcium (test code = calcium) 9.9 mg/dL 8.6-10.4 CO2 (test code = CO2) 24.6 mmol/L 20.0-32.0 anion gap (test code = anion gap) 12 calc [facility] CenterLipid 1995 panel - Serum or [id number] 09:45:00 Test Item Value Reference Range Interpretation Comments HDL (test code = HDL) 65 mg/dL 50-0 triglyceride (test code = 55 mg/dL 0-150 triglyceride) VLDL (calculated) (test code = VLDL 11 mg/dL (calculated)) cholesterol/HDL ratio (test code = 2.7 mg/dL cholesterol/HDL ratio) non-HDL cholesterol (calculated) 109 mg/dL 0-160 (test code = non-HDL cholesterol (calculated)) cholesterol (test code = 174 mg/dL 0-200 cholesterol) Cholesterol in LDL [Mass/volume] in 98 mg/dL 0-130 Serum or Plasma (test code = 2089-1) [facility] CenterCom[facility] 1999 panel - Serum or Plasma 2019-05-10 09:45:00 Test Item Value Reference Range Interpretation Comments ALT (test code = ALT) 10 U/L 0-55 AST (test code = AST) 16 U/L 5-34 BUN (test code = BUN) 9.5 mg/dL 7.0-25.0 alk phos (test code = alk phos) 90 unit/L 40-150 glucose (test code = glucose) 77 mg/dL 70-99 albumin (test code = albumin) 4.4 g/dL 3.4-5.1 creatinine (test code = 0.72 mg/dL 0.57-1.11 creatinine) eGFR non- (test >60 code = eGFR non-) total bilirubin (test code = 0.5 mg/dL 0.2-1.2 total bilirubin) eGFR - (test >60 code = eGFR - ) sodium (test code = sodium) 139 mEq/L 135-145 potassium (test code = potassium) 4.0 mEq/L 3.5-5.1 chloride (test code = chloride) 102 mmol/L 98-110 total protein (test code = total 7.4 g/dL 6.1-8.2 protein) calcium (test code = calcium) 9.9 mg/dL 8.6-10.4 CO2 (test code = CO2) 24.6 mmol/L 20.0-32.0 anion gap (test code = anion gap) 12 calc [facility] - Serum or [id number] 09:45:00 Test Item Value Reference Range Interpretation Comments HDL (test code = HDL) 65 mg/dL 50-0 triglyceride (test code = 55 mg/dL 0-150 triglyceride) VLDL (calculated) (test code = VLDL 11 mg/dL (calculated)) cholesterol/HDL ratio (test code = 2.7 mg/dL cholesterol/HDL ratio) non-HDL cholesterol (calculated) 109 mg/dL 0-160 (test code = non-HDL cholesterol (calculated)) cholesterol (test code = 174 mg/dL 0-200 cholesterol) Cholesterol in LDL [Mass/volume] in 98 mg/dL 0-130 Serum or Plasma (test code = 2089-1) [facility] - [id number] 17:02:00 Test Item Value Reference Range Interpretation Comments Color Color (test code = Color light yellow Color) Color Appearance (test code = clear Color Appearance) Color Glucose (test code = Color negative Glucose) Color Bilirubin (test code = negative Color Bilirubin) Color Ketones (test code = Color negative Ketones) Color Specific [place] (test 1.020 code = Color Specific [place]) Color Blood (test code = Color negative Blood) Color PH (test code = Color PH) 7.0 Color Protein (test code = Color negative Protein) Color Urobilinogen (test code = 0.2 Color Urobilinogen) Color Nitrites (test code = negative Color Nitrites) Color Leukocytes (test code = negative Color Leukocytes) [facility] - [id number] 17:02:00 Test Item Value Reference Range Interpretation Comments Color Color (test code = Color light yellow Color) Color Appearance (test code = clear Color Appearance) Color Glucose (test code = Color negative Glucose) Color Bilirubin (test code = negative Color Bilirubin) Color Ketones (test code = Color negative Ketones) Color Specific [place] (test 1.020 code = Color Specific [place]) Color Blood (test code = Color negative Blood) Color PH (test code = Color PH) 7.0 Color Protein (test code = Color negative Protein) Color Urobilinogen (test code = 0.2 Color Urobilinogen) Color Nitrites (test code = negative Color Nitrites) Color Leukocytes (test code = negative Color Leukocytes) [facility]
== END 2021-08-26 14:00 | disposition home or self-care (01) | DRG 603 ==
LOC: ER 01:32 → ERHOLD 02:38 → 4TH 03:58
PROVIDERS: ADMIT Hospitalist; ATTEND Hospitalist
PROC: 0J9H3ZX Drainage of Left Lower Arm Subcutaneous Tissue and Fascia, Percutaneous Approach, Diagnostic (ICD-10-PCS; 2021-08-22)
PROC: 0JDH3ZZ Extraction of Left Lower Arm Subcutaneous Tissue and Fascia, Percutaneous Approach (ICD-10-PCS; principal; 2021-08-22 11:00)
PROC: 0JDH3ZZ Extraction of Left Lower Arm Subcutaneous Tissue and Fascia, Percutaneous Approach (ICD-10-PCS; 2021-08-26)
DX: L02.414 Cutaneous abscess of left upper limb (principal); N39.0 Urinary tract infection, site not specified; F11.90 Opioid use, unspecified, uncomplicated; B96.20 Unspecified Escherichia coli [E. coli] as the cause of diseases classified elsewhere; B95.2 Enterococcus as the cause of diseases classified elsewhere; L03.114 Cellulitis of left upper limb; J45.20 Mild intermittent asthma, uncomplicated; Z20.822 Contact with and (suspected) exposure to COVID-19
CPT/HCPCS: 36415; 80048; 80053; 80076; 80202; 81003; 81015; 81025; 83605; 83735; 84100; 84132; 84145; 85025; 85610; 85730; 87040; 87070; 87075; 87077; 87086; 87088; 87186; 87205; 94760; 96374; 96375; 99284; J0692; J1100; J1170; J1650; J2250; J2405; J2704; J3010; J3370; J7050; J7120; J7799; U0003